=== PATIENT | female | born 1950 | race Caucasian/White ===

== ENCOUNTER 2016-05-16 11:22 | Inpatient (IN) | payer MEDICAID ==
[2016-05-16 11:40] VITALS: BMI 24.5
--- NOTE | 2016-05-16 11:52 | ED PDOC ---
Arrival/HPI - General Chief Complaint: Abdominal Pain Time Seen by Provider: 05/16/16 11:42 Historian: Patient, [employer] (Mita Reynolds) - History of Present Illness Narrative History of Present Illness (Text): 05/16/16 11:49 A 65 year old female presents to the emergency department complaining of lower abdominal pain for the past 11 days. History obtained through [employer] [place] translated for patient. Patient describes her pain as a pinching sensation and denies any radiation. Patient denies any fever, nausea, vomiting, diarrhea, urinary changes, chest pain,shortness of breath or any other complaints. Denies hx of abdominal surgeries. Time/Duration: Other (11 days) Symptom Course: Unchanged Quality: Other Context: Home Past Medical History - Provider Review Nursing Documentation Reviewed: Yes - Infectious Disease Hx of Infectious Diseases: None - Tetanus Immunization Tetanus Immunization: Unknown - Cardiac Hx Hypotension: Yes - Psychiatric Hx Psychophysiologic Disorder: No Hx Anxiety: No Hx Bipolar Disorder: No Hx Depression: No Hx Emotional Abuse: No Hx Hallucinations: No Hx Panic Disorder: No Hx Post Traumatic Stress Disorder: No Hx Psychosis: No Hx Physical Abuse: No Hx Schizophrenia: No Hx Sexual Abuse: No Hx Substance Use: No - Past Surgical History Past Surgical History: No Previous - Anesthesia Hx Anesthesia: No Hx Anesthesia Reactions: No Hx Malignant Hyperthermia: No - Suicidal Assessment Feels Threatened In Home Enviroment: No Family/Social History - Physician Review Nursing Documentation Reviewed: Yes Family/Social History: No Known Family HX Smoking Status: Never Smoked Hx Alcohol Use: No Hx Substance Use: No Hx Substance Use Treatment: No Allergies/Home Meds Allergies/Adverse Reactions: Allergies aspirin Allergy (Verified 05/16/16 11:40) ANAPHYLAXIS Penicillins Allergy (Verified 05/16/16 11:40) ANAPHYLAXIS Home Medications: Home Meds Medication Instructions Recorded Confirmed Lisinopril 20 mg PO DAILY 08/20/14 05/16/16 Metoprolol Succinate [Metoprolol 25 mg PO DAILY 05/16/16 05/16/16 Succinate] Review of Systems - Physician Review All systems were reviewed & negative as marked: Yes - Review of Systems Constitutional: absent: Fevers Respiratory: absent: SOB Cardiovascular: absent: Chest Pain, Palpitations, Edema, Calf Pain Gastrointestinal: Abdominal Pain (suprapubic pain). absent: Diarrhea, Nausea, Vomiting Genitourinary Female: absent: Dysuria, Frequency, Hematuria, Urine Output Changes Musculoskeletal: absent: Arthralgias Skin: absent: Rash, Pruritis Endocrine: absent: Diaphoresis Hemo/Lymphatic: absent: Adenopathy Psychiatric: absent: Anxiety Physical Exam Vital Signs Reviewed: Yes Vital Signs Temp Pulse Resp BP Pulse Ox 05/16/16 11:38 98.3 F 94 H 18 144/78 99 Temperature: Afebrile Blood Pressure: Normal Pulse: Regular Respiratory Rate: Normal Appearance: Positive for: Well-Appearing, Non-Toxic, Comfortable Pain Distress: None Mental Status: Positive for: Alert and Oriented X 3 - Systems Exam Head: Present: Atraumatic, Normocephalic Pupils: Present: PERRL Extroacular Muscles: Present: EOMI Conjunctiva: Present: Normal Mouth: Present: Moist Mucous Membranes Neck: Present: Normal Range of Motion Respiratory/Chest: Present: Clear to Auscultation, Good Air Exchange. No: Respiratory Distress, Accessory Muscle Use Cardiovascular: Present: Regular Rate and Rhythm, Normal S1, S2. No: Murmurs Abdomen: Present: Tenderness (Suprapubic tenderness to palpation), Normal Bowel Sounds. No: Distention, Peritoneal Signs, Rebound, Guarding Back: Present: Normal Inspection Upper Extremity: Present: Normal Inspection. No: Cyanosis, Edema Lower Extremity: Present: Normal Inspection. No: Edema Neurological: Present: GCS=15, CN II-XII Intact, Speech Normal Skin: Present: Warm, Dry, Normal Color. No: Rashes Psychiatric: Present: Alert, Oriented x 3, Normal Insight, Normal Concentration Medical Decision Making ED Course and Treatment: 05/16/16 11:49 Impression: A 65 year old female with suprapubic pain x 11 days. Patient denies any nausea, vomiting or diarrhea. Tender to palpation. Plan: -- Abdomen and pelvis CT -- EKG -- Urinalysis -- Labs -- Reassess and disposition Progress Notes: 05/16/16 12:49 Labs reviewed and WNL. P: ua and CT. Will sign out to Dr. barros to f/u ua and ct and reeval - Lab Interpretations Lab Results: 05/16/16 12:00 05/16/16 12:00 Lab Results 05/16/16 12:00: WBC 10.4 D, RBC 4.06, Hgb 11.2 L, Hct 34.5 L, MCV 85.0, MCH 27.6, MCHC 32.5, RDW 13.1, Plt Count 304, MPV 10.3, Gran % 59.8, Lymph % (Auto) 29.3, [place] % (Auto) 9.0 H, Eos % (Auto) 1.6, Baso % (Auto) 0.3, Gran # 6.23, Lymph # 3.1, [place] # 0.9 H, Eos # 0.2, Baso # 0.03, Sodium 134, Potassium 4.0, Chloride 98, Carbon Dioxide 25, Anion Gap 15, BUN 7, Creatinine 0.8, Est GFR ( Amer) > 60, Est GFR (Non-Af Amer) > 60, Random Glucose 100, Calcium 8.9 , Phosphorus 3.1, Magnesium 2.2, Total Bilirubin 0.7, AST 24, ALT 11, Alkaline Phosphatase 111, Total Protein 8.4 H, Albumin 3.9, Globulin 4.5, Albumin/ Globulin Ratio 0.9 L, Lipase 49 I have reviewed the lab results: Yes - RAD Interpretation Radiology Orders: 05/16/16 11:48 ABD & PELVIS IV CONTRAST ONLY [CT] Stat ED OBSERVATION Date of observation admission: 05/16/16 Time of observation admission: 11:51 - Observation admission statement Patient is being placed in observation because:: Abdominal pain - Goals of Observation Goals of observation are:: Monitor and treat symptoms - Scribe Statement The provider has reviewed the documentation as recorded by the Mita Kamara Provider Scribe Attestation: All medical record entries made by the Sheilaibcampos were at my direction and personally dictated by me. I have reviewed the chart and agree that the record accurately reflects my personal performance of the history, physical exam, medical decision making, and the department course for this patient. I have also personally directed, reviewed, and agree with the discharge instructions and disposition. Disposition/Present on Arrival - Present on Arrival Any Indicators Present on Arrival: No History of DVT/PE: No History of Uncontrolled Diabetes: No Urinary Catheter: No History of Decub. Ulcer: No History Surgical Site Infection Following: None - Disposition Have Diagnosis and Disposition been Completed?: Yes Diagnosis: Suprapubic pain Disposition Time: 12:50 Patient Plan: Observation Patient Problems: Current Active Problems Problem Status Diagnosed Suprapubic pain Acute Condition: FAIR Referrals: Lyn Yarbrough DO [Primary Care Provider] - Follow up with primary
[2016-05-16 12:04] LABS: ADD MANUAL DIFF? NO
[2016-05-16 12:07] LABS: BASO # 0.03 [, K/mm3] (0.0-2.0); BASO % 0.3 % (0.0-3.0); EOS # 0.2 (0.0-0.7); EOS % 1.6 % (1.5-5.0); GRAN # 6.23 (1.4-6.5); GRAN % 59.8 % (50.0-68.0); HEMATOCRIT 34.5 % (36.0-48.0); LYMPH # 3.1 (1.2-3.4); LYMPH % 29.3 % (22.0-35.0); MEAN CORPUSCULAR HEMOGLOBIN 27.6 pg (25.0-35.0); MEAN CORPUSCULAR HGB CONC 32.5 g/dl (31.0-37.0); MEAN PLATELET VOLUME 10.3 fl (7.0-11.0); MONO # 0.9 (0.1-0.6); PLATELET COUNT 304 [, 10^3/uL] (120.0-450.0); RED CELL DISTRIBUTION WIDTH 13.1 % (11.5-14.5); WHITE BLOOD COUNT 10.4 [, 10^3/ul] (4.5-11.0)
[2016-05-16 12:20] LABS: ALB/GLOB RATIO 0.9 (1.1-1.8); ALKALINE PHOSPHATASE 111 U/L (38-133); ALT/SGPT 11 U/L (7-56); AST/SGOT 24 U/L (15-39); BILIRUBIN,TOTAL 0.7 mg/dL (0.2-1.3); BLOOD UREA NITROGEN 7 mg/dL (7-21); CALCIUM 8.9 mg/dL (8.4-10.5); CARBON DIOXIDE 25 mmol/L (21-33); CHLORIDE 98 mmol/L (98-107); GFR AFRICAN-AMERICAN > 60; GLUCOSE,RANDOM 100 mg/dL (70-110); LIPASE 49 U/L (23-300); MAGNESIUM 2.2 mg/dL (1.7-2.2); PHOSPHOROUS 3.1 mg/dL (2.5-4.5); SODIUM 134 mmol/L (132-148); TOTAL PROTEIN 8.4 g/dL (5.8-8.3)
[2016-05-16] MEDS ORDERED: Iohexol 350 MG/100 ML VIAL ONE (13:06)
--- NOTE | 2016-05-16 14:16 | CT ---
PROCEDURE: CT Abdomen and Pelvis with contrast HISTORY: abdominal pain COMPARISON: There is no prior CT of the abdomen and pelvis available for comparison. TECHNIQUE: Contrast dose: 100 mL of Omnipaque 350 Radiation dose: Total exam DLP = 236.21 mGy-cm. FINDINGS: LOWER THORAX: Unremarkable. LIVER: Unremarkable. No gross lesion or ductal dilatation. GALLBLADDER AND BILE DUCTS: Unremarkable. PANCREAS: Unremarkable. No gross lesion or ductal dilatation. SPLEEN: Unremarkable. ADRENALS: Unremarkable. No mass. KIDNEYS AND URETERS: Mild fullness in the collecting system of both kidneys noted. VASCULATURE: Unremarkable. No aortic aneurysm. BOWEL: There are inflammatory changes surrounding the sigmoid colon which demonstrate diffuse wall thickening. There is adjacent 4.2 x 2.8 centimeter enhancing wall collection suggestive of abscess formation. Colonic diverticulosis are seen. Findings suggestive of diverticulitis and intramural or adjacent sigmoid colon abscess formation. No evidence of small bowel obstruction. Suboptimal assessment of the GI is without oral contrast administration. APPENDIX: No evidence of appendicitis. PERITONEUM: Unremarkable. No free fluid. No free air. LYMPH NODES: Mildly enlarged lymph nodes at the mid and lower abdomen. BLADDER: The bladder is mildly distended demonstrate moderate diffuse wall thickening. REPRODUCTIVE: The uterus is mildly enlarged for the patient's age may contain enhancing soft tissue lesion. BONES: No acute fracture. OTHER FINDINGS: None. IMPRESSION: Findings suggestive of sigmoid diverticulitis and abscess formation at the sigmoid wall or adjacent to the sigmoid measures 4.2 x 2.8 centimeter. Diffuse wall thickening of the sigmoid colon. Further assessment of the large bowel particularly the sigmoid colon after the acute phase of diverticulitis is suggested to exclude underlying neoplasm. Mildly to moderately distended urinary bladder demonstrates [id number] wall thickening. Correlate clinically for cystitis. Mildly enlarged heterogeneous uterus.
[2016-05-16] MEDS ORDERED: Ciprofloxacin 400mg/200ml D5W 200 ML IVPB STA (14:40)
[2016-05-16] MEDS ORDERED: metroNIDAZOLE IV 500 mg/100 ml 100 ML IVPB STA (14:40)
[2016-05-16 14:46] LABS: URINE BILIRUBIN NEGATIVE (NEGATIVE); URINE BLOOD LARGE (NEGATIVE); URINE GLUCOSE (UA) NEGATIVE (NEGATIVE); URINE KETONE NEGATIVE (NEGATIVE); URINE LEUKOCYTE ESTERASE NEGATIVE Leu/uL (NEGATIVE); URINE PROTEIN NEGATIVE mg/dL (<30 mg/dL); URINE UROBILINOGEN 0.2 E.U./dL (<1 E.U./dL)
[2016-05-16 14:53] LABS: URINE APPEARANCE CLEAR (CLEAR); URINE COLOR YELLOW (YELLOW)
[2016-05-16 15:11] LABS: URINE WBC NEGATIVE /hpf (0-6)
--- NOTE | 2016-05-16 15:14 | ED PDOC ---
Physical Exam Vital Signs Temp Pulse Resp BP Pulse Ox 05/16/16 11:38 98.3 F 94 H 18 144/78 99 Medical Decision Making ED Course and Treatment: 05/16/16 15:12 Patient signed out to me to follow CT, reevaluate and disposition. Patient states her pain is left lower and mid lower abdomen. One exam she appears comfortable. Abdomen soft and tender to mid lower and LLQ abdomen with guarding. Labs reviewed. WBC normal. CT reviewed with sigmoid diverticulitis with abscess formation. Discussed case with Dr. Frederick who will admit to Med/surg for IV antibiotics. - RAD Interpretation Radiology Orders: 05/16/16 11:48 ABD & PELVIS IV CONTRAST ONLY [CT] Stat - Medication Orders Current Medication Orders: Ciprofloxacin (Cipro 400mg/200ml Dsw) 200 mls @ 133.3 mls/hr IVPB STAT STA PRN Reason: Protocol Stop: 05/16/16 16:10 Metronidazole (Flagyl) 100 mls @ 100 mls/hr IVPB STAT STA PRN Reason: Protocol Stop: 05/16/16 15:39 Discontinued Medications Iohexol (Omnipaque 350 100 Ml) Confirm Administered Dose 350 mg .ROUTE .STK-MED ONE Stop: 05/16/16 13:07 Disposition/Present on Arrival - Present on Arrival Any Indicators Present on Arrival: No History of DVT/PE: No History of Uncontrolled Diabetes: No Urinary Catheter: No History of Decub. Ulcer: No History Surgical Site Infection Following: None - Disposition Have Diagnosis and Disposition been Completed?: Yes Diagnosis: Diverticulitis large intestine w/o perforation or abscess w/o bleeding Disposition: HOSPITALIZED Disposition Time: 11:51 Patient Plan: Admission Patient Problems: Current Active Problems Problem Status Diagnosed Suprapubic pain Acute Condition: FAIR
[2016-05-16] MEDS ORDERED: metroNIDAZOLE IV 500 mg/100 ml 100 ML IVPB SCH (16:00)
[2016-05-16] MEDS: Sodium Chloride 0.9% 1,000 ML IV SCH (16:00)
[2016-05-16] MEDS: Metoprolol Succinate 25 mg XL Tab PO SCH (16:16)
--- NOTE | 2016-05-16 16:18 | CP.PCM.HP ---
<Gregory Palomares - Last Filed: 05/16/16 16:29> History of Present Illness - History of Present Illness History of Present Illness: CC: "Lower stomach pain, fever" HPI: Pt is a 65 year old female with a PMHx of HTN who presents to the ED with an 11 day history of lower abdominal pain. Pt also reports that she experienced a fever today. Pt is accompanied by her granddaughter at bedside. She reports that she came to the ED today because her pain was getting worse. Pt describes the pain as sharp and diffuse across her lower abdomen. Pt also reports that when she urinates, it feels 'hot'. Pt reports that she walked to the ED today. Pt reports that she has had regular bowel movement. She reports that she only had tea today. Pt denies chills, headache, dizziness, shortness of breath, chest pain, nausea, vomiting, diarrhea, hematochezia, constipation, melena. PMHx: HTN Home medications: Lisinopril 20 mg po qd, Metoprolol 25 mg po qd Allergies: Aspirin, penicillin (rash) Past Surgical Hx: Tubal Ligation Social Hx: denies any hx of smoking, alcohol, drug use Family Hx: HTN, Diabetes (mother) Present on Admission - Present on Admission Any Indicators Present on Admission: No Review of Systems - Constitutional Constitutional: Fever. absent: Chills, Headache - EENT Eyes: absent: Blurred Vision, Change in Vision Ears: absent: Dizziness Nose/Mouth/Throat: absent: Nasal Congestion - Cardiovascular Cardiovascular: absent: Chest Pain, Dyspnea - Respiratory Respiratory: absent: Cough, Dyspnea - Gastrointestinal Gastrointestinal: Abdominal Pain. absent: Constipation, Melena, Nausea - Genitourinary Genitourinary: Dysuria - Musculoskeletal Musculoskeletal: absent: Back Pain - Neurological Neurological: absent: Abnormal Gait, Abnormal Hearing - Psychiatric Psychiatric: absent: Anxiety - Hematologic/Lymphatic Hematologic: absent: Easy Bleeding Past Patient History - Infectious Disease Hx of Infectious Diseases: None - Tetanus Immunizations Tetanus Immunization: Unknown - Past Social History Smoking Status: Never Smoked - CARDIAC Hx Hypotension: Yes - PSYCHIATRIC Hx Psychophysiologic Disorder: No Hx Anxiety: No Hx Bipolar Disorder: No Hx Depression: No Hx Emotional Abuse: No Hx Hallucinations: No Hx Panic Symptoms: No Hx Post Traumatic Stress Disorder: No Hx Psychosis: No Hx Physical Abuse: No Hx Schizophrenia: No Hx Sexual Abuse: No Hx Substance Use: No - SURGICAL HISTORY Hx Surgeries: No - ANESTHESIA Hx Anesthesia: No Hx Anesthesia Reactions: No Hx Malignant Hyperthermia: No Meds Allergies/Adverse Reactions: Allergies Allergy/AdvReac Type Severity Reaction Status Date / Time aspirin Allergy ANAPHYLAXIS Verified 05/16/16 11:40 Penicillins Allergy ANAPHYLAXIS Verified 05/16/16 11:40 Physical Exam - Constitutional Appears: No Acute Distress - Head Exam Head Exam: ATRAUMATIC, NORMOCEPHALIC - Eye Exam Eye Exam: EOMI, PERRL - ENT Exam ENT Exam: Mucous Membranes Moist. absent: Mucous Membranes Dry - Neck Exam Neck exam: Positive for: Full Rom. Negative for: Lymphadenopathy - Respiratory Exam Respiratory Exam: Clear to Auscultation Bilateral. absent: Rales, Rhonchi, Wheezes - Cardiovascular Exam Cardiovascular Exam: +S1, +S2. absent: Gallop, Rubs, Systolic Murmur - GI/Abdominal Exam GI & Abdominal Exam: Normal Bowel Sounds, Soft, Tenderness. absent: Distended, Guarding Additional comments: LLQ tenderness - Extremities Exam Extremities exam: Positive for: full ROM. Negative for: pedal edema - Neurological Exam Neurological exam: Alert, Oriented x3 - Psychiatric Exam Psychiatric exam: Normal Affect, Normal Mood Results - Vital Signs Recent Vital Signs: Last Vital Signs Temp 98.3 F 05/16/16 11:38 Pulse 94 H 05/16/16 11:38 Resp 18 05/16/16 11:38 BP 144/78 05/16/16 11:38 Pulse Ox 99 05/16/16 11:38 - Labs Result Diagrams: 05/16/16 12:00 05/16/16 12:00 Labs: Laboratory Results - last 24 hr 05/16/16 05/16/16 12:00 14:30 WBC 10.4 D RBC 4.06 Hgb 11.2 L Hct 34.5 L MCV 85.0 MCH 27.6 MCHC 32.5 RDW 13.1 Plt Count 304 MPV 10.3 Gran % 59.8 Lymph % (Auto) 29.3 [place] % (Auto) 9.0 H Eos % (Auto) 1.6 Baso % (Auto) 0.3 Gran # 6.23 Lymph # 3.1 [place] # 0.9 H Eos # 0.2 Baso # 0.03 Sodium 134 Potassium 4.0 Chloride 98 Carbon Dioxide 25 Anion Gap 15 BUN 7 Creatinine 0.8 Est GFR ( Amer) > 60 Est GFR (Non-Af Amer) > 60 Random Glucose 100 Calcium 8.9 Phosphorus 3.1 Magnesium 2.2 Total Bilirubin 0.7 AST 24 ALT 11 Alkaline Phosphatase 111 Total Protein 8.4 H Albumin 3.9 Globulin 4.5 Albumin/Globulin Ratio 0.9 L Lipase 49 Urine Color Yellow Urine Appearance Clear Urine pH 8.0 Ur Specific [place] 1.010 Urine Protein Negative Urine Glucose (UA) Negative Urine Ketones Negative Urine Blood Large H Urine Nitrate Negative Urine Bilirubin Negative Urine Urobilinogen 0.2 Ur Leukocyte Esterase Negative Urine RBC 10 - 15 Urine WBC Negative Assessment & Plan - Assessment and Plan (Free Text) Assessment: Sigmoid Diverticulitis: Abd/Pelvis CT - sigmoid diverticulitis and abscess formation at the sigmoid wall ; mild to moderate bladder wall thickening, clinically correlate for cystitis; mildly enlarged uterus (please see full report) EKG- NSR Afebrile, nontachycardic No leukocytosis Blood, urine cultures pending Infectious Disease, Dr. Shearer, consulted. Help appreciated. General surgery, Dr. Salvador, consulted. Help appreciated. Ciprofloxacin 400 mg IV q12h Flagyl IV q8h PTT pending CXR- official read pending Tylenol prn for fever Zofran prn for nausea NPO diet Ns 100 cc/hr HTN: Metoprolol 25 mg po qd Start lisinopril tomorrow Prophylactic Measures: DVT: SCDs GI: Protonix 40 mg IV qd <Don Frederick - Last Filed: 05/17/16 16:20> Results - Vital Signs Recent Vital Signs: Last Vital Signs Temp 98.8 F 05/17/16 09:12 Pulse 80 05/17/16 09:51 Resp 20 05/17/16 09:12 BP 131/85 05/17/16 09:51 Pulse Ox 98 05/17/16 09:12 - Labs Result Diagrams: 05/17/16 08:00 05/17/16 07:20 Labs: Laboratory Results - last 24 hr 05/16/16 05/17/16 05/17/16 16:10 07:20 08:00 WBC 10.5 RBC 3.78 Hgb 10.3 L Hct 32.2 L MCV 85.2 MCH 27.2 MCHC 32.0 RDW 13.2 Plt Count 299 MPV 10.5 PT 12.0 H INR 1.11 H APTT 29.8 Sodium 136 Potassium 4.2 Chloride 104 Carbon Dioxide 22 Anion Gap 14 BUN 8 Creatinine 0.7 Est GFR ( Amer) > 60 Est GFR (Non-Af Amer) > 60 Random Glucose 97 Calcium 8.3 L Assessment & Plan - Assessment and Plan (Free Text) Assessment: attending note; Patient seen and examined with resident in ER. Patient's granddaughter by the bedside. Patient is a 65 year old female with a PMHx of HTN who presents to the ED with an 11 day history of lower abdominal pain. Pt also reports that she experienced a fever today. CT consistent with diverticulitis and abscess. surgery evaluation requested. Started on IV Cipro and Flagyl. ID evaluation requested. Hypertension; currently controlled. Continue home meds. Upon discharge patient will follow-up with PMD Dr. Yarbrough. Attending/Attestation - Attestation I have personally seen and examined this patient.: Yes I have fully participated in the care of the patient.: Yes I have reviewed all pertinent clinical information: Yes
--- NOTE | 2016-05-16 16:33 | CP.PCM.CON ---
<Florentin Martinez - Last Filed: 05/16/16 16:36> History of Present Illness - History of Present Illness History of Present Illness: Surgery consult note for Madeleine: 65 F with a PMHx of HTN who presents to the ED with b/l lower abdominal pain. Pt is accompanied by her granddaughter at bedside. Pt states that her pain first started 11 days ago and has since gotten progressively worse. Pt states that the pain is intermittent and worse on the LLQ. She states that her pain is worse with standing and with having bowel movements. She admits to fevers but denies any nausea, vomiting, diarrhea, constipation. She denies taking anything for the pain at home. Denies this ever occurring before. She denies any headaches, dizziness, +fevers, chills, sob, cp, + abd pain, n/v, urinary or bm changes. PMHx: HTN Allergies: Aspirin, penicillin (rash) Surgical Hx: Tubal Ligation Social Hx: denies any hx of smoking, alcohol, drug use Family Hx: HTN, Diabetes (mother) Review of Systems - Review of Systems All systems: reviewed and no additional remarkable complaints except (HPI) Past Patient History - Infectious Disease Hx of Infectious Diseases: None - Tetanus Immunizations Tetanus Immunization: Unknown - Past Social History Smoking Status: Never Smoked Alcohol: None Drugs: Denies - CARDIAC Hx Hypotension: Yes - PSYCHIATRIC Hx Psychophysiologic Disorder: No Hx Anxiety: No Hx Bipolar Disorder: No Hx Depression: No Hx Emotional Abuse: No Hx Hallucinations: No Hx Panic Symptoms: No Hx Post Traumatic Stress Disorder: No Hx Psychosis: No Hx Physical Abuse: No Hx Schizophrenia: No Hx Sexual Abuse: No Hx Substance Use: No - SURGICAL HISTORY Hx Surgeries: No - ANESTHESIA Hx Anesthesia: No Hx Anesthesia Reactions: No Hx Malignant Hyperthermia: No Meds Allergies/Adverse Reactions: Allergies Allergy/AdvReac Type Severity Reaction Status Date / Time aspirin Allergy ANAPHYLAXIS Verified 05/16/16 11:40 Penicillins Allergy ANAPHYLAXIS Verified 05/16/16 11:40 - Medications Medications: Current Medications Acetaminophen (Tylenol 325mg Tab) 650 mg PO Q6H PRN PRN Reason: Fever >100.4 F Ciprofloxacin (Cipro 400mg/200ml Dsw) 200 mls @ 133.3 mls/hr IVPB Q12 [facility] PRN Reason: Protocol Stop: 05/16/16 23:31 Metronidazole (Flagyl) 100 mls @ 100 mls/hr IVPB Q8 [facility] PRN Reason: Protocol Last Admin: 05/16/16 16:17 Dose: Not Given Sodium Chloride (Sodium Chloride 0.9%) 1,000 mls @ 100 mls/hr IV .Q10H [facility] Last Admin: 05/16/16 16:00 Dose: 100 mls/hr Metoprolol Succinate (Toprol Xl) 25 mg PO DAILY [facility] Last Admin: 05/16/16 16:16 Dose: 25 mg Ondansetron HCl (Zofran Inj) 4 mg IVP Q4H PRN PRN Reason: Nausea/Vomiting Pantoprazole Sodium (Protonix Inj) 40 mg IVP DAILY [facility] Last Admin: 05/16/16 16:12 Dose: 40 mg Physical Exam - Constitutional Appears: No Acute Distress - Respiratory Exam Respiratory Exam: Clear to Auscultation Bilateral, NORMAL BREATHING PATTERN - Cardiovascular Exam Cardiovascular Exam: REGULAR RHYTHM, RRR, +S1, +S2 - GI/Abdominal Exam GI & Abdominal Exam: Normal Bowel Sounds, Soft. absent: Distended, Tenderness Additional comments: Tender to palpation LLQ>RLQ - Neurological Exam Neurological exam: Alert, Oriented x3 Results - Vital Signs Recent Vital Signs: Last Vital Signs Temp 98.3 F 05/16/16 11:38 Pulse 94 H 05/16/16 11:38 Resp 18 05/16/16 11:38 BP 144/78 05/16/16 11:38 Pulse Ox 99 05/16/16 11:38 - Labs Result Diagrams: 05/16/16 12:00 05/16/16 12:00 Labs: Laboratory Results - last 24 hr 05/16/16 05/16/16 12:00 14:30 WBC 10.4 D RBC 4.06 Hgb 11.2 L Hct 34.5 L MCV 85.0 MCH 27.6 MCHC 32.5 RDW 13.1 Plt Count 304 MPV 10.3 Gran % 59.8 Lymph % (Auto) 29.3 [place] % (Auto) 9.0 H Eos % (Auto) 1.6 Baso % (Auto) 0.3 Gran # 6.23 Lymph # 3.1 [place] # 0.9 H Eos # 0.2 Baso # 0.03 Sodium 134 Potassium 4.0 Chloride 98 Carbon Dioxide 25 Anion Gap 15 BUN 7 Creatinine 0.8 Est GFR ( Amer) > 60 Est GFR (Non-Af Amer) > 60 Random Glucose 100 Calcium 8.9 Phosphorus 3.1 Magnesium 2.2 Total Bilirubin 0.7 AST 24 ALT 11 Alkaline Phosphatase 111 Total Protein 8.4 H Albumin 3.9 Globulin 4.5 Albumin/Globulin Ratio 0.9 L Lipase 49 Urine Color Yellow Urine Appearance Clear Urine pH 8.0 Ur Specific [place] 1.010 Urine Protein Negative Urine Glucose (UA) Negative Urine Ketones Negative Urine Blood Large H Urine Nitrate Negative Urine Bilirubin Negative Urine Urobilinogen 0.2 Ur Leukocyte Esterase Negative Urine RBC 10 - 15 Urine WBC Negative Assessment & Plan - Assessment and Plan (Free Text) Assessment: 65 F presents with sigmoid diverticulitis with abscess - NPO - IV fluids - Cont Antibiotics as per ID - Recommend IR drainage - Conservative medical management at this time - Serial abd exams Pt discussed with Dr Madeleine Martinez IM Resident PGY-1 <Tra Salvador - Last Filed: 05/17/16 18:08> Meds - Medications Medications: Current Medications Acetaminophen (Tylenol 325mg Tab) 650 mg PO Q6H PRN PRN Reason: Fever >100.4 F Last Admin: 05/16/16 21:13 Dose: 650 mg Acetaminophen (Tylenol 325mg Tab) 650 mg PO Q4H PRN PRN Reason: Pain, Mild (1-3) Sodium Chloride (Sodium Chloride 0.9%) 1,000 mls @ 100 mls/hr IV .Q10H [facility] Last Admin: 05/17/16 12:30 Dose: 100 mls/hr Vancomycin HCl (Vancomycin 1gm) 250 mls @ 167 mls/hr IVPB Q12H [facility] PRN Reason: Protocol Last Admin: 05/17/16 05:02 Dose: 167 mls/hr Metronidazole (Flagyl) 100 mls @ 100 mls/hr IVPB Q8 [facility] PRN Reason: Protocol Last Admin: 05/17/16 13:02 Dose: 100 mls/hr Aztreonam (Azactam 1 Gm) 100 mls @ 100 mls/hr IVPB Q8 [facility] PRN Reason: Protocol Stop: 05/23/16 22:01 Last Admin: 05/17/16 13:02 Dose: 100 mls/hr Lactobacillus Acidophilus (Bacid Acidophilus) 1 cap PO BID [facility] Last Admin: 05/17/16 09:51 Dose: 1 cap Metoprolol Succinate (Toprol Xl) 25 mg PO DAILY [facility] Last Admin: 05/17/16 09:51 Dose: 25 mg Ondansetron HCl (Zofran Inj) 4 mg IVP Q4H PRN PRN Reason: Nausea/Vomiting Oxycodone/Acetaminophen (Percocet 5/325 Mg Tab) 1 tab PO Q6H PRN PRN Reason: Pain, moderate (4-7) Stop: 05/19/16 19:42 Last Admin: 05/17/16 12:28 Dose: 1 tab Pantoprazole Sodium (Protonix Inj) 40 mg IVP DAILY [facility] Last Admin: 05/17/16 09:51 Dose: 40 mg Results - Vital Signs Recent Vital Signs: Last Vital Signs Temp 98.4 F 05/17/16 16:00 Pulse 79 05/17/16 16:00 Resp 18 05/17/16 16:00 BP 146/45 L 05/17/16 16:00 Pulse Ox 99 05/17/16 16:00 - Labs Result Diagrams: 05/17/16 08:00 05/17/16 07:20 Labs: Laboratory Results - last 24 hr 05/17/16 05/17/16 07:20 08:00 WBC 10.5 RBC 3.78 Hgb 10.3 L Hct 32.2 L MCV 85.2 MCH 27.2 MCHC 32.0 RDW 13.2 Plt Count 299 MPV 10.5 Sodium 136 Potassium 4.2 Chloride 104 Carbon Dioxide 22 Anion Gap 14 BUN 8 Creatinine 0.7 Est GFR ( Amer) > 60 Est GFR (Non-Af Amer) > 60 Random Glucose 97 Calcium 8.3 L Attending/Attestation - Attestation I have personally seen and examined this patient.: Yes I have fully participated in the care of the patient.: Yes I have reviewed all pertinent clinical information: Yes Notes (Text): 05/17/16 18:07 Pt was seen and examined at bedside on 05/17/16 Agree with above note and assessment. Pt with Diverticulitis with abscess IR drainage C/w IV antibiotics. Plan d.w pt and Parents in detail Risk and benefit explained in detail.
--- NOTE | 2016-05-16 16:35 | RAD ---
PROCEDURE: Portable chest HISTORY: pre op COMPARISON: None TECHNIQUE: Technique: Single view portable semi erect @ 15:08. FINDINGS: No active pulmonary disease. No pulmonary nodules, masses or infiltrates. No evidence of acute, significant cardiovascular disease. No significant pleural, osseous or subdiaphragmatic abnormalities. IMPRESSION: No active disease
[2016-05-16] MEDS ORDERED: Iohexol 240 (50 ml) ONE (16:56)
[2016-05-16] MEDS ORDERED: Aztreonam 1 Gm in NS 100mL 100 ML IVPB SCH (17:00)
[2016-05-16 17:25] LABS: INR 1.11 (0.93-1.08); PARTIAL THROMBOPLASTIN TIME 29.8 Seconds (23.7-30.8)
--- NOTE | 2016-05-16 17:38 | CARD ---
APPROVED REPORT EKG Measurement Heart [id number] <Conclusion> Normal sinus rhythm Normal ECG
[2016-05-16] MEDS: Vancomycin 1gm in NS 250ml 250 ML IVPB SCH (18:15)
[2016-05-16] MEDS ORDERED: Midazolam 2 MG/2 ML VIAL ONE (18:18)
[2016-05-16] MEDS: metroNIDAZOLE IV 500 mg/100 ml 100 ML IVPB SCH (21:36)
[2016-05-16] MEDS: Aztreonam 1 Gm in NS 100mL 100 ML IVPB SCH (21:37)
[2016-05-16] MEDS ORDERED: Ciprofloxacin 400mg/200ml D5W 200 ML IVPB SCH (22:00)
--- NOTE | 2016-05-16 22:46 | CT ---
PROCEDURE: CT-guided sigmoid abscess drainage. HISTORY: Sigmoid abscess. Needs drainage. PHYSICIAN(S): Yaya Oreilly MD. TECHNIQUE: The relative risks and indications for the procedure were explained to the patient and her family and informed consent obtained. The patient was placed in a supine position on the CT scanner and preliminary images through the lower abdomen performed. This revealed a 4 x 6 cm inflammatory abscess adjacent to the sigmoid colon. A left anterior oblique approach was selected and the area prepped/draped in the usual sterile fashion. Conscious sedation and monitoring were provided throughout the procedure by nurse. An 18-gauge needle was advanced into the collection and 10 cc of purulent fluid aspirated. A specimen was sent to microbiology. A 0.035 J-wire was coiled within the fluid collection. Sequential dilatation was performed with subsequent placement of a 12 [place] pigtail drain. Approximately 35 cc of purulent fluid was aspirated. The cavity was lavaged with normal saline. The drain was sutured to the skin and placed to gravity drainage. Completion images were performed. The patient tolerated the procedure well. IMPRESSION: 1. CT-guided sigmoid abscess drainage as described above.
[2016-05-17] MEDS: Oxycodone/Acetaminophen 5/325 mg Tab PO PRN ×3 (02:54→23:27)
[2016-05-17] MEDS: Vancomycin 1gm in NS 250ml 250 ML IVPB SCH ×2 (05:02→18:11)
[2016-05-17] MEDS: Aztreonam 1 Gm in NS 100mL 100 ML IVPB SCH ×3 (05:02→21:45)
[2016-05-17] MEDS: metroNIDAZOLE IV 500 mg/100 ml 100 ML IVPB SCH ×3 (05:03→23:04)
[2016-05-17 08:04] LABS: BLOOD UREA NITROGEN 8 mg/dL (7-21); CALCIUM 8.3 mg/dL (8.4-10.5); CARBON DIOXIDE 22 mmol/L (21-33); CHLORIDE 104 mmol/L (98-107); GFR AFRICAN-AMERICAN > 60; GLUCOSE,RANDOM 97 mg/dL (70-110); POTASSIUM 4.2 mmol/L (3.6-5.0); SODIUM 136 mmol/L (132-148)
[2016-05-17 08:12] LABS: HEMATOCRIT 32.2 % (36.0-48.0); MEAN CELL VOLUME 85.2 fL (80.0-105.0); MEAN CORPUSCULAR HEMOGLOBIN 27.2 pg (25.0-35.0); MEAN PLATELET VOLUME 10.5 fl (7.0-11.0); RED CELL DISTRIBUTION WIDTH 13.2 % (11.5-14.5); WHITE BLOOD COUNT 10.5 [, 10^3/ul] (4.5-11.0)
--- NOTE | 2016-05-17 08:22 | CP.PCM.PN ---
<Antonia Vo - Last Filed: 05/17/16 15:52> Subjective - Date & Time of Evaluation Date of Evaluation: 05/17/16 Time of Evaluation: 07:30 - Subjective Subjective: Pt seen and evaluated at the bedside. Pt denies N/V. Had low-grade fever 100.4 F last night @ 2100. LLQ abdominal pain is controlled with medication. Last BM was yesterday, prior to IR drainage. Objective - Vital Signs/Intake and Output Vital Signs (last 24 hours): Temp Pulse Resp BP Pulse Ox 100.4 F H 80 18 159/78 H 97 05/16/16 21:13 05/16/16 20:10 05/16/16 21:00 05/16/16 20:10 05/16/16 20:10 Intake and Output: 05/17/16 05/17/16 06:59 18:59 Intake Total 1850 Output Total 400 Balance 1450 - Medications Medications: Current Medications Acetaminophen (Tylenol 325mg Tab) 650 mg PO Q6H PRN PRN Reason: Fever >100.4 F Last Admin: 05/16/16 21:13 Dose: 650 mg Acetaminophen (Tylenol 325mg Tab) 650 mg PO Q4H PRN PRN Reason: Pain, Mild (1-3) Sodium Chloride (Sodium Chloride 0.9%) 1,000 mls @ 100 mls/hr IV .Q10H [facility] Last Admin: 05/16/16 16:00 Dose: 100 mls/hr Vancomycin HCl (Vancomycin 1gm) 250 mls @ 167 mls/hr IVPB Q12H [facility] PRN Reason: Protocol Last Admin: 05/17/16 05:02 Dose: 167 mls/hr Metronidazole (Flagyl) 100 mls @ 100 mls/hr IVPB Q8 [facility] PRN Reason: Protocol Last Admin: 05/17/16 05:03 Dose: 100 mls/hr Aztreonam (Azactam 1 Gm) 100 mls @ 100 mls/hr IVPB Q8 [facility] PRN Reason: Protocol Stop: 05/23/16 22:01 Last Admin: 05/17/16 05:02 Dose: 100 mls/hr Lactobacillus Acidophilus (Bacid Acidophilus) 1 cap PO BID [facility] Metoprolol Succinate (Toprol Xl) 25 mg PO DAILY [facility] Last Admin: 05/16/16 16:16 Dose: 25 mg Ondansetron HCl (Zofran Inj) 4 mg IVP Q4H PRN PRN Reason: Nausea/Vomiting Oxycodone/Acetaminophen (Percocet 5/325 Mg Tab) 1 tab PO Q6H PRN PRN Reason: Pain, moderate (4-7) Stop: 05/19/16 19:42 Last Admin: 05/17/16 02:54 Dose: 1 tab Pantoprazole Sodium (Protonix Inj) 40 mg IVP DAILY [facility] Last Admin: 05/16/16 16:12 Dose: 40 mg - Labs Labs: 05/17/16 07:20 PT 12.0 Seconds (9.9-11.8) H 05/16/16 16:10 INR 1.11 (0.93-1.08) H 05/16/16 16:10 APTT 29.8 Seconds (23.7-30.8) 05/16/16 16:10 - Constitutional Appears: No Acute Distress - Eye Exam Eye Exam: EOMI - Respiratory Exam Respiratory Exam: NORMAL BREATHING PATTERN - Cardiovascular Exam Cardiovascular Exam: RRR - GI/Abdominal Exam GI & Abdominal Exam: Soft, Tenderness Additional comments: LLQ tenderness. APDL catheter to LLQ present - Extremities Exam Extremities Exam: absent: Pedal Edema - Neurological Exam Neurological Exam: Alert, Awake - Skin Skin Exam: Warm Assessment and Plan - Assessment and Plan (Free Text) Plan: 65 F presents with sigmoid diverticulitis with abscess, IR drainage POD #1. Repeat abd CT: 4 x 6 cm abscess, drained of 45cc purulent fluid and lavaged. - NPO, abd tenderness present - IV fluids - Cont Antibiotics as per ID - Conservative medical management at this time - Serial abd exams Further recs as per Dr Madeleine Vo PGY-1 <Tra Salvador B - Last Filed: 05/17/16 18:14> Objective - Vital Signs/Intake and Output Vital Signs (last 24 hours): Temp Pulse Resp BP Pulse Ox 98.4 F 79 18 146/45 L 99 05/17/16 16:00 05/17/16 16:00 05/17/16 16:00 05/17/16 16:00 05/17/16 16:00 Intake and Output: 05/17/16 05/17/16 06:59 18:59 Intake Total 1850 Output Total 400 Balance 1450 - Medications Medications: Current Medications Acetaminophen (Tylenol 325mg Tab) 650 mg PO Q6H PRN PRN Reason: Fever >100.4 F Last Admin: 05/16/16 21:13 Dose: 650 mg Acetaminophen (Tylenol 325mg Tab) 650 mg PO Q4H PRN PRN Reason: Pain, Mild (1-3) Sodium Chloride (Sodium Chloride 0.9%) 1,000 mls @ 100 mls/hr IV .Q10H [facility] Last Admin: 05/17/16 12:30 Dose: 100 mls/hr Vancomycin HCl (Vancomycin 1gm) 250 mls @ 167 mls/hr IVPB Q12H [facility] PRN Reason: Protocol Last Admin: 05/17/16 18:11 Dose: 167 mls/hr Metronidazole (Flagyl) 100 mls @ 100 mls/hr IVPB Q8 [facility] PRN Reason: Protocol Last Admin: 05/17/16 13:02 Dose: 100 mls/hr Aztreonam (Azactam 1 Gm) 100 mls @ 100 mls/hr IVPB Q8 [facility] PRN Reason: Protocol Stop: 05/23/16 22:01 Last Admin: 05/17/16 13:02 Dose: 100 mls/hr Lactobacillus Acidophilus (Bacid Acidophilus) 1 cap PO BID [facility] Last Admin: 05/17/16 18:10 Dose: 1 cap Metoprolol Succinate (Toprol Xl) 25 mg PO DAILY [facility] Last Admin: 05/17/16 09:51 Dose: 25 mg Ondansetron HCl (Zofran Inj) 4 mg IVP Q4H PRN PRN Reason: Nausea/Vomiting Oxycodone/Acetaminophen (Percocet 5/325 Mg Tab) 1 tab PO Q6H PRN PRN Reason: Pain, moderate (4-7) Stop: 05/19/16 19:42 Last Admin: 05/17/16 12:28 Dose: 1 tab Pantoprazole Sodium (Protonix Inj) 40 mg IVP DAILY [facility] Last Admin: 05/17/16 09:51 Dose: 40 mg - Labs Labs: 05/17/16 08:00 05/17/16 07:20 PT 12.0 Seconds (9.9-11.8) H 05/16/16 16:10 INR 1.11 (0.93-1.08) H 05/16/16 16:10 APTT 29.8 Seconds (23.7-30.8) 05/16/16 16:10 Attending/Attestation - Attestation I have personally seen and examined this patient.: Yes I have fully participated in the care of the patient.: Yes I have reviewed all pertinent clinical information, including history, physical exam and plan: Yes Notes (Text): 05/17/16 18:13 Pt was seen and examined at bedside on 05/17/16 Agree with above note and assessment. S/P IR drainage C/w IV antibiotics GI consult Plan d.w pt and Primary team.
[2016-05-17] MEDS: Metoprolol Succinate 25 mg XL Tab PO SCH (09:51)
[2016-05-17] MEDS: Lactobacillus Acidophilus 500 MU Cap PO SCH ×2 (09:51→18:10)
[2016-05-17] MEDS: Sodium Chloride 0.9% 1,000 ML IV SCH (12:30)
--- NOTE | 2016-05-17 14:21 | CP.PCM.PN ---
<Gregory Palomares - Last Filed: 05/17/16 14:18> Subjective - Date & Time of Evaluation Date of Evaluation: 05/17/16 Time of Evaluation: 07:38 - Subjective Subjective: PT seen and examined. Pt complaining of mild to moderate abdominal pain. Pt reports that she is having bowel movements. Pt denies fever, chills, chest pain , shortness of breath, nausea, vomiting, diarrhea. Objective - Vital Signs/Intake and Output Vital Signs (last 24 hours): Temp Pulse Resp BP Pulse Ox 98.8 F 80 20 131/85 98 05/17/16 09:12 05/17/16 09:51 05/17/16 09:12 05/17/16 09:51 05/17/16 09:12 Intake and Output: 05/17/16 05/17/16 06:59 18:59 Intake Total 1850 Output Total 400 Balance 1450 - Medications Medications: Current Medications Acetaminophen (Tylenol 325mg Tab) 650 mg PO Q6H PRN PRN Reason: Fever >100.4 F Last Admin: 05/16/16 21:13 Dose: 650 mg Acetaminophen (Tylenol 325mg Tab) 650 mg PO Q4H PRN PRN Reason: Pain, Mild (1-3) Sodium Chloride (Sodium Chloride 0.9%) 1,000 mls @ 100 mls/hr IV .Q10H [facility] [place] Last Admin: 05/17/16 12:30 Dose: 100 mls/hr Vancomycin HCl (Vancomycin 1gm) 250 mls @ 167 mls/hr IVPB Q12H [facility] PRN Reason: Protocol Last Admin: 05/17/16 05:02 Dose: 167 mls/hr Metronidazole (Flagyl) 100 mls @ 100 mls/hr IVPB Q8 [facility] PRN Reason: Protocol Last Admin: 05/17/16 13:02 Dose: 100 mls/hr Aztreonam (Azactam 1 Gm) 100 mls @ 100 mls/hr IVPB Q8 [facility] PRN Reason: Protocol Stop: 05/23/16 22:01 Last Admin: 05/17/16 13:02 Dose: 100 mls/hr Lactobacillus Acidophilus (Bacid Acidophilus) 1 cap PO BID [facility] [place] Last Admin: 05/17/16 09:51 Dose: 1 cap Metoprolol Succinate (Toprol Xl) 25 mg PO DAILY [facility] [place] Last Admin: 05/17/16 09:51 Dose: 25 mg Ondansetron HCl (Zofran Inj) 4 mg IVP Q4H PRN PRN Reason: Nausea/Vomiting Oxycodone/Acetaminophen (Percocet 5/325 Mg Tab) 1 tab PO Q6H PRN PRN Reason: Pain, moderate (4-7) Stop: 05/19/16 19:42 Last Admin: 05/17/16 12:28 Dose: 1 tab Pantoprazole Sodium (Protonix Inj) 40 mg IVP DAILY [facility] [place] Last Admin: 05/17/16 09:51 Dose: 40 mg - Labs Labs: 05/17/16 08:00 05/17/16 07:20 PT 12.0 Seconds (9.9-11.8) H 05/16/16 16:10 INR 1.11 (0.93-1.08) H 05/16/16 16:10 APTT 29.8 Seconds (23.7-30.8) 05/16/16 16:10 - Constitutional Appears: No Acute Distress - Head Exam Head Exam: ATRAUMATIC, NORMOCEPHALIC - Eye Exam Eye Exam: EOMI, PERRL - ENT Exam ENT Exam: Mucous Membranes Moist. absent: Mucous Membranes Dry - Respiratory Exam Respiratory Exam: Clear to Ausculation Bilateral. absent: Rales, Rhonchi, Wheezes - Cardiovascular Exam Cardiovascular Exam: +S1, +S2. absent: Gallop, Rubs - GI/Abdominal Exam GI & Abdominal Exam: Soft, Tenderness, Normal Bowel Sounds. absent: Distended, Firm Additional comments: mid abdomen tenderness - Extremities Exam Extremities Exam: Full ROM. absent: Pedal Edema - Neurological Exam Neurological Exam: Alert, Awake, Oriented x3 - Psychiatric Exam Psychiatric exam: Normal Affect, Normal Mood - Skin Skin Exam: Normal Color, Warm Assessment and Plan - Assessment and Plan (Free Text) Assessment: Sigmoid Diverticulitis: Pt day 0 s/p CT guided abscess drainage and drain placement as per IR; 45 cc of purulent fluid drained and lavaged; serosanguinous fluid in drain Fluid cultures pending Abd/Pelvis CT - sigmoid diverticulitis and abscess formation at the sigmoid wall ; mild to moderate bladder wall thickening, clinically correlate for cystitis; mildly enlarged uterus (please see full report) EKG- NSR Tmax 100.4, nontachycardic No leukocytosis CXR - no active disease (please see full report) Blood, urine cultures pending Azactam 1 gm IV q8h Vancomycin 1 gm IV q12h Flagyl IV q8h Percocet 5/325 mg po q6h prn for moderate pain Tylenol prn for mild pain Tylenol prn for fever Zofran prn for nausea Continue NPO as per surgery due to pt still having abdominal tenderness Ns 100 cc/hr HTN: BP currently stable Metoprolol 25 mg po qd Lisinopril held Prophylactic Measures: DVT: SCDs GI: Protonix 40 mg IV qd <Rangasamy,Ajantha - Last Filed: 05/17/16 18:27> Objective - Vital Signs/Intake and Output Vital Signs (last 24 hours): Temp Pulse Resp BP Pulse Ox 98.4 F 79 18 146/45 L 99 05/17/16 16:00 05/17/16 16:00 05/17/16 16:00 05/17/16 16:00 05/17/16 16:00 Intake and Output: 05/17/16 05/17/16 06:59 18:59 Intake Total 1850 Output Total 400 Balance 1450 - Medications Medications: Current Medications Acetaminophen (Tylenol 325mg Tab) 650 mg PO Q6H PRN PRN Reason: Fever >100.4 F Last Admin: 05/16/16 21:13 Dose: 650 mg Acetaminophen (Tylenol 325mg Tab) 650 mg PO Q4H PRN PRN Reason: Pain, Mild (1-3) Sodium Chloride (Sodium Chloride 0.9%) 1,000 mls @ 100 mls/hr IV .Q10H [facility] Last Admin: 05/17/16 12:30 Dose: 100 mls/hr Vancomycin HCl (Vancomycin 1gm) 250 mls @ 167 mls/hr IVPB Q12H [facility] PRN Reason: Protocol Last Admin: 05/17/16 18:11 Dose: 167 mls/hr Metronidazole (Flagyl) 100 mls @ 100 mls/hr IVPB Q8 [facility] PRN Reason: Protocol Last Admin: 05/17/16 13:02 Dose: 100 mls/hr Aztreonam (Azactam 1 Gm) 100 mls @ 100 mls/hr IVPB Q8 [facility] PRN Reason: Protocol Stop: 05/23/16 22:01 Last Admin: 05/17/16 13:02 Dose: 100 mls/hr Lactobacillus Acidophilus (Bacid Acidophilus) 1 cap PO BID [facility] Last Admin: 05/17/16 18:10 Dose: 1 cap Metoprolol Succinate (Toprol Xl) 25 mg PO DAILY [facility] [place] Last Admin: 05/17/16 09:51 Dose: 25 mg Ondansetron HCl (Zofran Inj) 4 mg IVP Q4H PRN PRN Reason: Nausea/Vomiting Oxycodone/Acetaminophen (Percocet 5/325 Mg Tab) 1 tab PO Q6H PRN PRN Reason: Pain, moderate (4-7) Stop: 05/19/16 19:42 Last Admin: 05/17/16 12:28 Dose: 1 tab Pantoprazole Sodium (Protonix Inj) 40 mg IVP DAILY [facility] [place] Last Admin: 05/17/16 09:51 Dose: 40 mg - Labs Labs: 05/17/16 08:00 05/17/16 07:20 PT 12.0 Seconds (9.9-11.8) H 05/16/16 16:10 INR 1.11 (0.93-1.08) H 05/16/16 16:10 APTT 29.8 Seconds (23.7-30.8) 05/16/16 16:10 Assessment and Plan - Assessment and Plan (Free Text) Assessment: attending note; Patient seen and examined with resident. Patient is a 65 year old female with a PMHx of HTN who presents to the ED with an 11 day history of lower abdominal pain. Pt also reports that she experienced a fever today. CT consistent with diverticulitis and abscess. surgery evaluation appreciated. Status post pigtail catheter placement by IR Dr. Yaya Oreilly yesterday. Culture results pending. ID evaluation appreciated. continue IV vancomycin, azactam and Flagyl. currently patient is nothing by mouth. Continue IV fluids. we'll start clear liquid in a.m.. Hypertension; currently controlled. Continue home meds. Upon discharge patient will follow-up with PMD Dr. Yarbrough. Attending/Attestation - Attestation I have personally seen and examined this patient.: Yes I have fully participated in the care of the patient.: Yes I have reviewed all pertinent clinical information, including history, physical exam and plan: Yes
--- NOTE | 2016-05-17 16:24 | CP.PCM.CON ---
History of Present Illness - History of Present Illness History of Present Illness: 65 year old female with PMH of HTN was admitted because of lower abdominal pain which is mostly in the left lower quadrant, associated with nausea, which is worsened when she moves her bowels. She denies fever or chills but had low grade fevers during this admission, no vomiting, no chest pain, no SOB, no cough or rhinorrhea, no headache or dizziness, no dysuria, no diarrhea, no sore throat, no headache or dizziness. In the ED, CT A/P showed diverticulitis with abscess and CT-guided drainage has been done. Infectious Diseases consult is requested to further evaluate and manage. Review of Systems - Review of Systems All systems: reviewed and no additional remarkable complaints except (as per HPI ) Past Patient History - Infectious Disease Hx of Infectious Diseases: None - Tetanus Immunizations Tetanus Immunization: Unknown - Past Medical History & Family History Past Medical History?: Yes Pertinent Family History: HTN, DM on the mother's side - Past Social History Smoking Status: Never Smoked Alcohol: None Drugs: Denies Home Situation {Lives}: With Family - CARDIAC Hx Hypertension: Yes - MUSCULOSKELETAL/RHEUMATOLOGICAL Hx Falls: No - PSYCHIATRIC Hx Psychophysiologic Disorder: No Hx Anxiety: No Hx Bipolar Disorder: No Hx Depression: No Hx Emotional Abuse: No Hx Hallucinations: No Hx Panic Symptoms: No Hx Post Traumatic Stress Disorder: No Hx Psychosis: No Hx Physical Abuse: No Hx Schizophrenia: No Hx Sexual Abuse: No - SURGICAL HISTORY Hx Surgeries: Yes Other/Comment: tubal ligation - ANESTHESIA Hx Anesthesia: No Hx Anesthesia Reactions: No Hx Malignant Hyperthermia: No Meds Allergies/Adverse Reactions: Allergies Allergy/AdvReac Type Severity Reaction Status Date / Time aspirin Allergy ANAPHYLAXIS Verified 05/16/16 11:40 Penicillins Allergy ANAPHYLAXIS Verified 05/16/16 11:40 - Medications Medications: Current Medications Acetaminophen (Tylenol 325mg Tab) 650 mg PO Q6H PRN PRN Reason: Fever >100.4 F Last Admin: 05/16/16 21:13 Dose: 650 mg Acetaminophen (Tylenol 325mg Tab) 650 mg PO Q4H PRN PRN Reason: Pain, Mild (1-3) Sodium Chloride (Sodium Chloride 0.9%) 1,000 mls @ 100 mls/hr IV .Q10H [facility] Last Admin: 05/16/16 16:00 Dose: 100 mls/hr Vancomycin HCl (Vancomycin 1gm) 250 mls @ 167 mls/hr IVPB Q12H [facility] PRN Reason: Protocol Last Admin: 05/17/16 05:02 Dose: 167 mls/hr Metronidazole (Flagyl) 100 mls @ 100 mls/hr IVPB Q8 [facility] PRN Reason: Protocol Last Admin: 05/17/16 05:03 Dose: 100 mls/hr Aztreonam (Azactam 1 Gm) 100 mls @ 100 mls/hr IVPB Q8 [facility] PRN Reason: Protocol Stop: 05/23/16 22:01 Last Admin: 05/17/16 05:02 Dose: 100 mls/hr Lactobacillus Acidophilus (Bacid Acidophilus) 1 cap PO BID [facility] Metoprolol Succinate (Toprol Xl) 25 mg PO DAILY [facility] Last Admin: 05/16/16 16:16 Dose: 25 mg Ondansetron HCl (Zofran Inj) 4 mg IVP Q4H PRN PRN Reason: Nausea/Vomiting Oxycodone/Acetaminophen (Percocet 5/325 Mg Tab) 1 tab PO Q6H PRN PRN Reason: Pain, moderate (4-7) Stop: 05/19/16 19:42 Last Admin: 05/17/16 02:54 Dose: 1 tab Pantoprazole Sodium (Protonix Inj) 40 mg IVP DAILY [facility] Last Admin: 05/16/16 16:12 Dose: 40 mg Physical Exam - Constitutional Appears: Non-toxic, No Acute Distress - Head Exam Head Exam: NORMAL INSPECTION - ENT Exam ENT Exam: Mucous Membranes Moist - Neck Exam Neck exam: Negative for: Lymphadenopathy, Meningismus - Respiratory Exam Respiratory Exam: Decreased Breath Sounds. absent: Rales - Cardiovascular Exam Cardiovascular Exam: +S1, +S2 - GI/Abdominal Exam GI & Abdominal Exam: Soft, Tenderness (mild, left lower quadrant, with abdominal drain in place with serosanguinous fluid). absent: Distended, Firm, Guarding, Rebound, Rigid Results - Vital Signs Recent Vital Signs: Last Vital Signs Temp 100.4 F H 05/16/16 21:13 Pulse 80 05/16/16 20:10 Resp 18 05/16/16 21:00 BP 159/78 H 05/16/16 20:10 Pulse Ox 97 05/16/16 20:10 - Labs Result Diagrams: 05/17/16 08:00 03/22/17 07:20 Labs: Laboratory Results - last 24 hr 05/16/16 16:10 PT 12.0 H INR 1.11 H APTT 29.8 Assessment & Plan - Assessment and Plan (Free Text) Plan: Assessment Sepsis secondary to sigmoid diverticulitis with diverticular abscess S/P CT- guided drainage POD #1 HTN Plan Started patient on Vancomycin, Azactam and Flagyl pending final blood and abscess culture results Will monitor clinically
[2016-05-18] MEDS: Vancomycin 1gm in NS 250ml 250 ML IVPB SCH ×2 (05:10→17:46)
[2016-05-18] MEDS: Aztreonam 1 Gm in NS 100mL 100 ML IVPB SCH ×3 (07:02→23:15)
[2016-05-18 07:19] LABS: ADD MANUAL DIFF? NO
[2016-05-18 07:26] LABS: BASO # 0.01 [, K/mm3] (0.0-2.0); BASO % 0.1 % (0.0-3.0); EOS # 0.2 (0.0-0.7); EOS % 2.7 % (1.5-5.0); GRAN # 5.57 (1.4-6.5); GRAN % 72.3 % (50.0-68.0); HEMATOCRIT 31.7 % (36.0-48.0); LYMPH # 1.3 (1.2-3.4); LYMPH % 16.9 % (22.0-35.0); MEAN CELL VOLUME 83.6 fL (80.0-105.0); MEAN CORPUSCULAR HEMOGLOBIN 26.9 pg (25.0-35.0); MEAN CORPUSCULAR HGB CONC 32.2 g/dl (31.0-37.0); MONO # 0.6 (0.1-0.6); PLATELET COUNT 297 [, 10^3/uL] (120.0-450.0); RED CELL DISTRIBUTION WIDTH 13.1 % (11.5-14.5); WHITE BLOOD COUNT 7.7 [, 10^3/ul] (4.5-11.0)
--- NOTE | 2016-05-18 07:43 | CP.PCM.PN ---
<Antonia Vo - Last Filed: 05/18/16 16:34> Subjective - Date & Time of Evaluation Date of Evaluation: 05/18/16 Time of Evaluation: 06:20 - Subjective Subjective: Pt seen and evaluated at the bedside. Pt denies F/N/V/D and is hungry. Abd pain is decreased, but still present. Objective - Vital Signs/Intake and Output Vital Signs (last 24 hours): Temp Pulse Resp BP Pulse Ox 98.4 F 79 18 146/45 L 99 05/17/16 16:00 05/17/16 16:00 05/17/16 16:00 05/17/16 16:00 05/17/16 16:00 Intake and Output: 05/18/16 05/18/16 06:59 18:59 Intake Total 0 Balance 0 - Medications Medications: Current Medications Acetaminophen (Tylenol 325mg Tab) 650 mg PO Q6H PRN PRN Reason: Fever >100.4 F Last Admin: 05/16/16 21:13 Dose: 650 mg Acetaminophen (Tylenol 325mg Tab) 650 mg PO Q4H PRN PRN Reason: Pain, Mild (1-3) Sodium Chloride (Sodium Chloride 0.9%) 1,000 mls @ 100 mls/hr IV .Q10H [facility] Last Admin: 05/17/16 12:30 Dose: 100 mls/hr Vancomycin HCl (Vancomycin 1gm) 250 mls @ 167 mls/hr IVPB Q12H [facility] PRN Reason: Protocol Last Admin: 05/18/16 05:10 Dose: 167 mls/hr Metronidazole (Flagyl) 100 mls @ 100 mls/hr IVPB Q8 [facility] PRN Reason: Protocol Last Admin: 05/17/16 23:04 Dose: 100 mls/hr Aztreonam (Azactam 1 Gm) 100 mls @ 100 mls/hr IVPB Q8 [facility] PRN Reason: Protocol Stop: 05/23/16 22:01 Last Admin: 05/18/16 07:02 Dose: 100 mls/hr Lactobacillus Acidophilus (Bacid Acidophilus) 1 cap PO BID [facility] Last Admin: 05/17/16 18:10 Dose: 1 cap Metoprolol Succinate (Toprol Xl) 25 mg PO DAILY [facility] Last Admin: 05/17/16 09:51 Dose: 25 mg Ondansetron HCl (Zofran Inj) 4 mg IVP Q4H PRN PRN Reason: Nausea/Vomiting Oxycodone/Acetaminophen (Percocet 5/325 Mg Tab) 1 tab PO Q6H PRN PRN Reason: Pain, moderate (4-7) Stop: 05/19/16 19:42 Last Admin: 05/17/16 23:27 Dose: 1 tab Pantoprazole Sodium (Protonix Inj) 40 mg IVP DAILY [facility] Last Admin: 05/17/16 09:51 Dose: 40 mg - Labs Labs: 05/18/16 06:45 05/17/16 07:20 PT 12.0 Seconds (9.9-11.8) H 05/16/16 16:10 INR 1.11 (0.93-1.08) H 05/16/16 16:10 APTT 29.8 Seconds (23.7-30.8) 05/16/16 16:10 - Additional Findings Additional findings: - Constitutional Appears: No Acute Distress - Eye Exam Eye Exam: EOMI - Respiratory Exam Respiratory Exam: NORMAL BREATHING PATTERN - Cardiovascular Exam Cardiovascular Exam: RRR - GI/Abdominal Exam GI & Abdominal Exam: Soft, tenderness to LLQ Additional comments: APDL catheter to LLQ present - Extremities Exam Extremities Exam: absent: Pedal Edema - Neurological Exam Neurological Exam: Alert, Awake - Skin Skin Exam: Warm Assessment and Plan - Assessment and Plan (Free Text) Plan: 65 F presents with sigmoid diverticulitis with abscess, IR drainage POD #2. Repeat abd CT: 4 x 6 cm abscess, drained of 45cc purulent fluid and lavaged. - ADAT - IV fluids - Cont Antibiotics as per ID - Conservative medical management at this time - Serial abd exams Further recs as per Dr Madeleine Vo PGY-1 <Tra Salvador B - Last Filed: 05/19/16 15:30> Objective - Vital Signs/Intake and Output Vital Signs (last 24 hours): Temp Pulse Resp BP Pulse Ox 99.2 F 78 20 173/104 H 99 05/19/16 09:22 05/19/16 09:22 05/19/16 09:22 05/19/16 09:22 05/19/16 09:22 Intake and Output: 05/19/16 05/19/16 06:59 18:59 Intake Total 600 Output Total 2 Balance 598 - Medications Medications: Current Medications Acetaminophen (Tylenol 325mg Tab) 650 mg PO Q6H PRN PRN Reason: Fever >100.4 F Last Admin: 05/16/16 21:13 Dose: 650 mg Acetaminophen (Tylenol 325mg Tab) 650 mg PO Q4H PRN PRN Reason: Pain, Mild (1-3) Heparin Sodium (Porcine) (Heparin) 5,000 units SC Q12 [facility] PRN Reason: Protocol Sodium Chloride (Sodium Chloride 0.9%) 1,000 mls @ 100 mls/hr IV .Q10H [facility] Last Admin: 05/19/16 12:55 Dose: 100 mls/hr Metronidazole (Flagyl) 100 mls @ 100 mls/hr IVPB Q8 [facility] PRN Reason: Protocol Last Admin: 05/19/16 13:00 Dose: 100 mls/hr Aztreonam (Azactam 1 Gm) 100 mls @ 100 mls/hr IVPB Q8 [facility] PRN Reason: Protocol Stop: 05/23/16 22:01 Last Admin: 05/19/16 13:00 Dose: 100 mls/hr Lactobacillus Acidophilus (Bacid Acidophilus) 1 cap PO BID [facility] Last Admin: 05/19/16 09:14 Dose: 1 cap Lisinopril (Zestril) 20 mg PO DAILY [facility] Last Admin: 05/19/16 09:09 Dose: Not Given Metoprolol Succinate (Toprol Xl) 25 mg PO DAILY [facility] Last Admin: 05/19/16 09:14 Dose: 25 mg Ondansetron HCl (Zofran Inj) 4 mg IVP Q4H PRN PRN Reason: Nausea/Vomiting Oxycodone/Acetaminophen (Percocet 5/325 Mg Tab) 1 tab PO Q6H PRN PRN Reason: Pain, moderate (4-7) Stop: 05/19/16 19:42 Last Admin: 05/17/16 23:27 Dose: 1 tab Pantoprazole Sodium (Protonix Inj) 40 mg IVP DAILY [facility] Last Admin: 05/19/16 09:14 Dose: 40 mg - Labs Labs: 05/19/16 07:30 05/19/16 07:30 PT 12.0 Seconds (9.9-11.8) H 05/16/16 16:10 INR 1.11 (0.93-1.08) H 05/16/16 16:10 APTT 29.8 Seconds (23.7-30.8) 05/16/16 16:10 Attending/Attestation - Attestation I have personally seen and examined this patient.: Yes I have fully participated in the care of the patient.: Yes I have reviewed all pertinent clinical information, including history, physical exam and plan: Yes Notes (Text): 05/19/16 15:29 Pt was seen and examined at bedside on 05/18/16 Agree with above note and assessment Pt is improving clinically C/w current mx
[2016-05-18] MEDS: metroNIDAZOLE IV 500 mg/100 ml 100 ML IVPB SCH ×3 (08:02→21:23)
[2016-05-18 08:12] LABS: ALB/GLOB RATIO 0.8 (1.1-1.8); ALKALINE PHOSPHATASE 94 U/L (38-133); ALT/SGPT 13 U/L (7-56); AST/SGOT 23 U/L (15-39); BILIRUBIN,TOTAL 0.5 mg/dL (0.2-1.3); BLOOD UREA NITROGEN 7 mg/dL (7-21); CALCIUM 8.1 mg/dL (8.4-10.5); CARBON DIOXIDE 18 mmol/L (21-33); CHLORIDE 105 mmol/L (98-107); GFR AFRICAN-AMERICAN > 60; GLUCOSE,RANDOM 74 mg/dL (70-110); MAGNESIUM 1.9 mg/dL (1.7-2.2); PHOSPHOROUS 2.7 mg/dL (2.5-4.5); POTASSIUM 3.7 mmol/L (3.6-5.0); SODIUM 135 mmol/L (132-148); TOTAL PROTEIN 7.2 g/dL (5.8-8.3)
[2016-05-18 08:54] VITALS: RESP 20
[2016-05-18] MEDS: Metoprolol Succinate 25 mg XL Tab PO SCH (09:00)
[2016-05-18] MEDS: Lactobacillus Acidophilus 500 MU Cap PO SCH ×2 (09:01→17:47)
--- NOTE | 2016-05-18 13:20 | CP.PCM.CON ---
<Dylan Terry - Last Filed: 05/18/16 14:20> History of Present Illness - History of Present Illness History of Present Illness: PGY4 GI Fellow Consult Note Patient is a 65yo female with PMHx significant for HTN who presented to the ED with abdominal pain. For 11 days prior to admission she complained of cramping LLQ abdominal pain. At first pain was aching and slight but progressed to severe stabbing pain prompting evaluation in the ED. Symptoms were exacerbated by walking, eating and trying to pass stool. On initial work up, CT of the A/P revealed acute diverticulitis with abscess formation adjacent to the sigmoid colon. She has since undergone IR placement of a drain for her abscess. At this time, she continues to complain of LQL abdominal pain and low grade fever with occasional chills. Admits that she had colonoscopy 7 years ago without any significant findings. She denies any weight loss, nausea, vomiting, hematochezia or melena. PMHx: See HPI PSHx: Denies FHx: Mother - [place], DM Social: Denies tobacco, EtOH or illicit drug use Endo: Colonoscopy 7 years ago - no significant findings per patient Review of Systems - Constitutional Constitutional: Anorexia, Chills, Fatigue, Fever, Malaise - EENT Eyes: absent: Change in Vision Nose/Mouth/Throat: absent: Sore Throat - Cardiovascular Cardiovascular: absent: Chest Pain, Diaphoresis, Dyspnea - Respiratory Respiratory: absent: Cough, Dyspnea, Excessive Mucous Production - Gastrointestinal Gastrointestinal: Abdominal Pain, Cramping, Diarrhea, Dysphagia. absent: Bloating, Constipation, Dyspepsia, Nausea, Vomiting - Genitourinary Genitourinary: absent: Dysuria, Urinary Frequency, Urinary Urgency - Musculoskeletal Musculoskeletal: absent: Back Pain, Neck Pain - Integumentary Integumentary: absent: New Lesions, Rash - Neurological Neurological: absent: Dizziness, Numbness, Focal Weakness - Psychiatric Psychiatric: absent: Anxiety, Depression - Endocrine Endocrine: absent: Polydipsia, Polyphagia, Polyuria - Hematologic/Lymphatic Hematologic: absent: Easy Bleeding, Easy Bruising, Lymphadenopathy Past Patient History - Infectious Disease Hx of Infectious Diseases: None - Tetanus Immunizations Tetanus Immunization: Unknown - Past Medical History & Family History Past Medical History?: Yes - Past Social History Smoking Status: Never Smoked Alcohol: None Drugs: Denies Home Situation {Lives}: With Family - CARDIAC Hx Hypertension: Yes - MUSCULOSKELETAL/RHEUMATOLOGICAL Hx Falls: No - PSYCHIATRIC Hx Psychophysiologic Disorder: No Hx Anxiety: No Hx Bipolar Disorder: No Hx Depression: No Hx Emotional Abuse: No Hx Hallucinations: No Hx Panic Symptoms: No Hx Post Traumatic Stress Disorder: No Hx Psychosis: No Hx Physical Abuse: No Hx Schizophrenia: No Hx Sexual Abuse: No - SURGICAL HISTORY Hx Surgeries: Yes Other/Comment: tubal ligation - ANESTHESIA Hx Anesthesia: No Hx Anesthesia Reactions: No Hx Malignant Hyperthermia: No Meds Allergies/Adverse Reactions: Allergies Allergy/AdvReac Type Severity Reaction Status Date / Time aspirin Allergy ANAPHYLAXIS Verified 05/16/16 11:40 Penicillins Allergy ANAPHYLAXIS Verified 05/16/16 11:40 - Medications Medications: Current Medications Acetaminophen (Tylenol 325mg Tab) 650 mg PO Q6H PRN PRN Reason: Fever >100.4 F Last Admin: 05/16/16 21:13 Dose: 650 mg Acetaminophen (Tylenol 325mg Tab) 650 mg PO Q4H PRN PRN Reason: Pain, Mild (1-3) Sodium Chloride (Sodium Chloride 0.9%) 1,000 mls @ 100 mls/hr IV .Q10H [facility] Last Admin: 05/17/16 12:30 Dose: 100 mls/hr Vancomycin HCl (Vancomycin 1gm) 250 mls @ 167 mls/hr IVPB Q12H [facility] PRN Reason: Protocol Last Admin: 05/18/16 05:10 Dose: 167 mls/hr Metronidazole (Flagyl) 100 mls @ 100 mls/hr IVPB Q8 [facility] PRN Reason: Protocol Last Admin: 05/18/16 08:02 Dose: 100 mls/hr Aztreonam (Azactam 1 Gm) 100 mls @ 100 mls/hr IVPB Q8 [facility] PRN Reason: Protocol Stop: 05/23/16 22:01 Last Admin: 05/18/16 07:02 Dose: 100 mls/hr Lactobacillus Acidophilus (Bacid Acidophilus) 1 cap PO BID [facility] Last Admin: 05/18/16 09:01 Dose: 1 cap Lisinopril (Zestril) 20 mg PO DAILY [facility] Metoprolol Succinate (Toprol Xl) 25 mg PO DAILY [facility] Last Admin: 05/18/16 09:00 Dose: 25 mg Ondansetron HCl (Zofran Inj) 4 mg IVP Q4H PRN PRN Reason: Nausea/Vomiting Oxycodone/Acetaminophen (Percocet 5/325 Mg Tab) 1 tab PO Q6H PRN PRN Reason: Pain, moderate (4-7) Stop: 05/19/16 19:42 Last Admin: 05/17/16 23:27 Dose: 1 tab Pantoprazole Sodium (Protonix Inj) 40 mg IVP DAILY [facility] Last Admin: 05/18/16 09:00 Dose: 40 mg Physical Exam - Constitutional Appears: Non-toxic, No Acute Distress - Eye Exam Eye Exam: EOMI, PERRL - ENT Exam ENT Exam: Mucous Membranes Moist - Respiratory Exam Respiratory Exam: Clear to Auscultation Bilateral. absent: Rales, Rhonchi, Wheezes - Cardiovascular Exam Cardiovascular Exam: RRR, +S1, +S2 - GI/Abdominal Exam GI & Abdominal Exam: Normal Bowel Sounds, Soft, Tenderness (LLQ). absent: Distended, Firm, Guarding, Rigid Additional comments: drain in LLQ - Extremities Exam Extremities exam: Positive for: normal inspection. Negative for: pedal edema - Neurological Exam Neurological exam: Alert, Oriented x3 - Psychiatric Exam Psychiatric exam: Normal Affect, Normal Mood - Skin Skin Exam: Dry, Warm Results - Vital Signs Recent Vital Signs: Last Vital Signs Temp 98.5 F 05/18/16 08:00 Pulse 77 05/18/16 09:00 Resp 20 05/18/16 08:00 BP 152/60 H 05/18/16 09:00 Pulse Ox 99 05/18/16 08:00 - Labs Result Diagrams: 05/18/16 06:45 05/18/16 06:45 Labs: Laboratory Results - last 24 hr 05/18/16 06:45 WBC 7.7 D RBC 3.79 Hgb 10.2 L Hct 31.7 L MCV 83.6 MCH 26.9 MCHC 32.2 RDW 13.1 Plt Count 297 MPV 10.0 Gran % 72.3 H Lymph % (Auto) 16.9 L [place] % (Auto) 8.0 H Eos % (Auto) 2.7 Baso % (Auto) 0.1 Gran # 5.57 Lymph # 1.3 [place] # 0.6 Eos # 0.2 Baso # 0.01 Sodium 135 Potassium 3.7 Chloride 105 Carbon Dioxide 18 L Anion Gap 16 BUN 7 Creatinine 0.6 Est GFR ( Amer) > 60 Est GFR (Non-Af Amer) > 60 Random Glucose 74 Calcium 8.1 L Phosphorus 2.7 Magnesium 1.9 Total Bilirubin 0.5 AST 23 ALT 13 Alkaline Phosphatase 94 Total Protein 7.2 Albumin 3.1 Globulin 4.1 Albumin/Globulin Ratio 0.8 L Assessment & Plan - Assessment and Plan (Free Text) Assessment: Patient is a 65yo female with PMHx significant for HTN who presented to the ED with abdominal pain. For 11 days prior to admission she complained of cramping LLQ abdominal pain. -Acute diverticulitis with abscess formation -HTN Plan: -Patient will need continued course of antibiotics tailored to GNR which is growing in drained fluid culture -ID following -Surgery following -Will benefit from colonoscopy 6-8 weeks after resolution of acute medical issues; patient to follow up in office - Date & Time Date: 05/18/16 Time: 14:15 <Juan Francisco Mujica - Last Filed: 05/18/16 16:27> Meds - Medications Medications: Current Medications Acetaminophen (Tylenol 325mg Tab) 650 mg PO Q6H PRN PRN Reason: Fever >100.4 F Last Admin: 05/16/16 21:13 Dose: 650 mg Acetaminophen (Tylenol 325mg Tab) 650 mg PO Q4H PRN PRN Reason: Pain, Mild (1-3) Sodium Chloride (Sodium Chloride 0.9%) 1,000 mls @ 100 mls/hr IV .Q10H [facility] Last Admin: 05/17/16 12:30 Dose: 100 mls/hr Vancomycin HCl (Vancomycin 1gm) 250 mls @ 167 mls/hr IVPB Q12H [facility] PRN Reason: Protocol Last Admin: 05/18/16 05:10 Dose: 167 mls/hr Metronidazole (Flagyl) 100 mls @ 100 mls/hr IVPB Q8 [facility] PRN Reason: Protocol Last Admin: 05/18/16 14:24 Dose: 100 mls/hr Aztreonam (Azactam 1 Gm) 100 mls @ 100 mls/hr IVPB Q8 [facility] PRN Reason: Protocol Stop: 05/23/16 22:01 Last Admin: 05/18/16 13:19 Dose: 100 mls/hr Lactobacillus Acidophilus (Bacid Acidophilus) 1 cap PO BID [facility] Last Admin: 05/18/16 09:01 Dose: 1 cap Lisinopril (Zestril) 20 mg PO DAILY [facility] Last Admin: 05/18/16 13:21 Dose: 20 mg Metoprolol Succinate (Toprol Xl) 25 mg PO DAILY [facility] Last Admin: 05/18/16 09:00 Dose: 25 mg Ondansetron HCl (Zofran Inj) 4 mg IVP Q4H PRN PRN Reason: Nausea/Vomiting Oxycodone/Acetaminophen (Percocet 5/325 Mg Tab) 1 tab PO Q6H PRN PRN Reason: Pain, moderate (4-7) Stop: 05/19/16 19:42 Last Admin: 05/17/16 23:27 Dose: 1 tab Pantoprazole Sodium (Protonix Inj) 40 mg IVP DAILY [facility] Last Admin: 05/18/16 09:00 Dose: 40 mg Results - Vital Signs Recent Vital Signs: Last Vital Signs Temp 98.5 F 05/18/16 08:00 Pulse 80 05/18/16 13:21 Resp 20 05/18/16 08:00 BP 140/82 05/18/16 13:21 Pulse Ox 99 05/18/16 08:00 - Labs Result Diagrams: 05/18/16 06:45 05/18/16 06:45 Labs: Laboratory Results - last 24 hr 05/18/16 06:45 WBC 7.7 D RBC 3.79 Hgb 10.2 L Hct 31.7 L MCV 83.6 MCH 26.9 MCHC 32.2 RDW 13.1 Plt Count 297 MPV 10.0 Gran % 72.3 H Lymph % (Auto) 16.9 L [place] % (Auto) 8.0 H Eos % (Auto) 2.7 Baso % (Auto) 0.1 Gran # 5.57 Lymph # 1.3 [place] # 0.6 Eos # 0.2 Baso # 0.01 Sodium 135 Potassium 3.7 Chloride 105 Carbon Dioxide 18 L Anion Gap 16 BUN 7 Creatinine 0.6 Est GFR ( Amer) > 60 Est GFR (Non-Af Amer) > 60 Random Glucose 74 Calcium 8.1 L Phosphorus 2.7 Magnesium 1.9 Total Bilirubin 0.5 AST 23 ALT 13 Alkaline Phosphatase 94 Total Protein 7.2 Albumin 3.1 Globulin 4.1 Albumin/Globulin Ratio 0.8 L Attending/Attestation - Attestation I have personally seen and examined this patient.: Yes I have fully participated in the care of the patient.: Yes I have reviewed all pertinent clinical information: Yes Notes (Text): 05/18/16 16:25 65 year old female with HTN who presented with abdominal pain and fever, found to have acute complicated diverticulitis with abscess. 1. Acute diverticulitis Plan: -complicated by abscess formation -patient is s/p Ct guided drainage -continue IV antibiotics -appreciate surgical consultation -advance diet as tolerated -recommend colonoscopy when diverticulitis/abscess are resolved in 6-8 weeks depending on clinical course
--- NOTE | 2016-05-18 15:16 | CP.PCM.PN ---
Subjective - Date & Time of Evaluation Date of Evaluation: 05/18/16 Time of Evaluation: 11:10 - Subjective Subjective: Comfortable in bed, not in distress, no fevers. Objective - Vital Signs/Intake and Output Vital Signs (last 24 hours): Temp Pulse Resp BP Pulse Ox 98.5 F 77 20 152/60 H 99 05/18/16 08:00 05/18/16 09:00 05/18/16 08:00 05/18/16 09:00 05/18/16 08:00 Intake and Output: 05/18/16 05/18/16 06:59 18:59 Intake Total 0 1300 Output Total 130 Balance 0 1170 - Medications Medications: Current Medications Acetaminophen (Tylenol 325mg Tab) 650 mg PO Q6H PRN PRN Reason: Fever >100.4 F Last Admin: 05/16/16 21:13 Dose: 650 mg Acetaminophen (Tylenol 325mg Tab) 650 mg PO Q4H PRN PRN Reason: Pain, Mild (1-3) Sodium Chloride (Sodium Chloride 0.9%) 1,000 mls @ 100 mls/hr IV .Q10H [facility] Last Admin: 05/17/16 12:30 Dose: 100 mls/hr Vancomycin HCl (Vancomycin 1gm) 250 mls @ 167 mls/hr IVPB Q12H [facility] PRN Reason: Protocol Last Admin: 05/18/16 05:10 Dose: 167 mls/hr Metronidazole (Flagyl) 100 mls @ 100 mls/hr IVPB Q8 [facility] PRN Reason: Protocol Last Admin: 05/18/16 08:02 Dose: 100 mls/hr Aztreonam (Azactam 1 Gm) 100 mls @ 100 mls/hr IVPB Q8 [facility] PRN Reason: Protocol Stop: 05/23/16 22:01 Last Admin: 05/18/16 07:02 Dose: 100 mls/hr Lactobacillus Acidophilus (Bacid Acidophilus) 1 cap PO BID [facility] Last Admin: 05/18/16 09:01 Dose: 1 cap Metoprolol Succinate (Toprol Xl) 25 mg PO DAILY [facility] Last Admin: 05/18/16 09:00 Dose: 25 mg Ondansetron HCl (Zofran Inj) 4 mg IVP Q4H PRN PRN Reason: Nausea/Vomiting Oxycodone/Acetaminophen (Percocet 5/325 Mg Tab) 1 tab PO Q6H PRN PRN Reason: Pain, moderate (4-7) Stop: 05/19/16 19:42 Last Admin: 05/17/16 23:27 Dose: 1 tab Pantoprazole Sodium (Protonix Inj) 40 mg IVP DAILY [facility] Last Admin: 05/18/16 09:00 Dose: 40 mg - Labs Labs: 05/18/16 06:45 05/18/16 06:45 PT 12.0 Seconds (9.9-11.8) H 05/16/16 16:10 INR 1.11 (0.93-1.08) H 05/16/16 16:10 APTT 29.8 Seconds (23.7-30.8) 05/16/16 16:10 - Constitutional Appears: Non-toxic, No Acute Distress - Head Exam Head Exam: NORMAL INSPECTION - Neck Exam Neck Exam: absent: Lymphadenopathy, Meningismus - Respiratory Exam Respiratory Exam: Decreased Breath Sounds - Cardiovascular Exam Cardiovascular Exam: +S1, +S2 - GI/Abdominal Exam GI & Abdominal Exam: Soft. absent: Tenderness Assessment and Plan - Assessment and Plan (Free Text) Plan: Assessment Sepsis secondary to sigmoid diverticulitis with diverticular abscess S/P CT- guided drainage POD #2; abscess is growing gram negative bacilli HTN Plan continue Vancomycin, Azactam and Flagyl day 2 pending final blood and abscess culture results Will continue monitor clinically
--- NOTE | 2016-05-18 18:12 | CP.PCM.PN ---
<Gregory Palomares - Last Filed: 05/18/16 18:05> Subjective - Date & Time of Evaluation Date of Evaluation: 05/18/16 Time of Evaluation: 09:35 - Subjective Subjective: Pt seen and examined. Pt complaining of moderate abdominal pain. Pt denies fever , chills, chest pain, shortness of breath, nausea, and vomiting. Objective - Vital Signs/Intake and Output Vital Signs (last 24 hours): Temp Pulse Resp BP Pulse Ox 98.5 F 80 20 140/82 99 05/18/16 08:00 05/18/16 13:21 05/18/16 08:00 05/18/16 13:21 05/18/16 08:00 Intake and Output: 05/18/16 05/18/16 06:59 18:59 Intake Total 0 1300 Output Total 130 Balance 0 1170 - Medications Medications: Current Medications Acetaminophen (Tylenol 325mg Tab) 650 mg PO Q6H PRN PRN Reason: Fever >100.4 F Last Admin: 05/16/16 21:13 Dose: 650 mg Acetaminophen (Tylenol 325mg Tab) 650 mg PO Q4H PRN PRN Reason: Pain, Mild (1-3) Sodium Chloride (Sodium Chloride 0.9%) 1,000 mls @ 100 mls/hr IV .Q10H [facility] Last Admin: 05/17/16 12:30 Dose: 100 mls/hr Vancomycin HCl (Vancomycin 1gm) 250 mls @ 167 mls/hr IVPB Q12H [facility] PRN Reason: Protocol Last Admin: 05/18/16 17:46 Dose: 167 mls/hr Metronidazole (Flagyl) 100 mls @ 100 mls/hr IVPB Q8 [facility] PRN Reason: Protocol Last Admin: 05/18/16 14:24 Dose: 100 mls/hr Aztreonam (Azactam 1 Gm) 100 mls @ 100 mls/hr IVPB Q8 [facility] PRN Reason: Protocol Stop: 05/23/16 22:01 Last Admin: 05/18/16 13:19 Dose: 100 mls/hr Lactobacillus Acidophilus (Bacid Acidophilus) 1 cap PO BID [facility] Last Admin: 05/18/16 17:47 Dose: 1 cap Lisinopril (Zestril) 20 mg PO DAILY [facility] Last Admin: 05/18/16 13:21 Dose: 20 mg Metoprolol Succinate (Toprol Xl) 25 mg PO DAILY [facility] Last Admin: 05/18/16 09:00 Dose: 25 mg Ondansetron HCl (Zofran Inj) 4 mg IVP Q4H PRN PRN Reason: Nausea/Vomiting Oxycodone/Acetaminophen (Percocet 5/325 Mg Tab) 1 tab PO Q6H PRN PRN Reason: Pain, moderate (4-7) Stop: 05/19/16 19:42 Last Admin: 05/17/16 23:27 Dose: 1 tab Pantoprazole Sodium (Protonix Inj) 40 mg IVP DAILY [facility] Last Admin: 05/18/16 09:00 Dose: 40 mg - Labs Labs: 05/18/16 06:45 05/18/16 06:45 PT 12.0 Seconds (9.9-11.8) H 05/16/16 16:10 INR 1.11 (0.93-1.08) H 05/16/16 16:10 APTT 29.8 Seconds (23.7-30.8) 05/16/16 16:10 - Constitutional Appears: No Acute Distress - Head Exam Head Exam: ATRAUMATIC, NORMOCEPHALIC - Eye Exam Eye Exam: EOMI, PERRL - ENT Exam ENT Exam: Mucous Membranes Moist. absent: Mucous Membranes Dry - Neck Exam Neck Exam: Full ROM. absent: Lymphadenopathy, Thyromegaly - Respiratory Exam Respiratory Exam: Clear to Ausculation Bilateral. absent: Rales, Rhonchi, Wheezes - Cardiovascular Exam Cardiovascular Exam: +S1, +S2. absent: Gallop, Rubs - GI/Abdominal Exam GI & Abdominal Exam: Soft, Tenderness, Normal Bowel Sounds. absent: Distended, Rigid - Extremities Exam Extremities Exam: Full ROM. absent: Pedal Edema - Neurological Exam Neurological Exam: Alert, Awake, Oriented x3 - Psychiatric Exam Psychiatric exam: Normal Affect, Normal Mood - Skin Skin Exam: Normal Color, Warm Assessment and Plan - Assessment and Plan (Free Text) Assessment: Sigmoid Diverticulitis: Pt day 1 s/p CT guided abscess drainage and drain placement as per IR; 45 cc of purulent fluid drained and lavaged; serosanguinous fluid in drain Fluid cultures positive for gram negative rods Abd/Pelvis CT - sigmoid diverticulitis and abscess formation at the sigmoid wall ; mild to moderate bladder wall thickening, clinically correlate for cystitis; mildly enlarged uterus (please see full report) EKG- NSR Tmax 100.4, nontachycardic; pt afebrile overnight No leukocytosis CXR - no active disease (please see full report) Blood, urine cultures pending Azactam 1 gm IV q8h Vancomycin 1 gm IV q12h Flagyl IV q8h Percocet 5/325 mg po q6h prn for moderate pain Tylenol prn for mild pain Tylenol prn for fever Zofran prn for nausea Diet advanced to clear liquids Ns 100 cc/hr GI, Dr. Barajas, consulted. Help appreciated. As per GI, pt will need colonoscopy in 6-8 weeks once abscess and diverticulitis are resolved. HTN: BP currently stable Metoprolol 25 mg po qd Lisinopril 20 mg po qd Prophylactic Measures: DVT: SCDs GI: Protonix 40 mg IV qd <Don Frederick - Last Filed: 05/19/16 16:42> Objective - Vital Signs/Intake and Output Vital Signs (last 24 hours): Temp Pulse Resp BP Pulse Ox 99.2 F 78 20 173/104 H 99 05/19/16 09:22 05/19/16 09:22 05/19/16 09:22 05/19/16 09:22 05/19/16 09:22 Intake and Output: 05/19/16 05/19/16 06:59 18:59 Intake Total 600 Output Total 2 Balance 598 - Medications Medications: Current Medications Acetaminophen (Tylenol 325mg Tab) 650 mg PO Q6H PRN PRN Reason: Fever >100.4 F Last Admin: 05/16/16 21:13 Dose: 650 mg Acetaminophen (Tylenol 325mg Tab) 650 mg PO Q4H PRN PRN Reason: Pain, Mild (1-3) Heparin Sodium (Porcine) (Heparin) 5,000 units SC Q12 [facility] PRN Reason: Protocol Metronidazole (Flagyl) 100 mls @ 100 mls/hr IVPB Q8 [facility] PRN Reason: Protocol Last Admin: 05/19/16 13:00 Dose: 100 mls/hr Aztreonam (Azactam 1 Gm) 100 mls @ 100 mls/hr IVPB Q8 [facility] PRN Reason: Protocol Stop: 05/23/16 22:01 Last Admin: 05/19/16 13:00 Dose: 100 mls/hr Lactobacillus Acidophilus (Bacid Acidophilus) 1 cap PO BID [facility] Last Admin: 05/19/16 09:14 Dose: 1 cap Lisinopril (Zestril) 20 mg PO DAILY [facility] Last Admin: 05/19/16 09:09 Dose: Not Given Metoprolol Succinate (Toprol Xl) 25 mg PO DAILY [facility] Last Admin: 05/19/16 09:14 Dose: 25 mg Ondansetron HCl (Zofran Inj) 4 mg IVP Q4H PRN PRN Reason: Nausea/Vomiting Oxycodone/Acetaminophen (Percocet 5/325 Mg Tab) 1 tab PO Q6H PRN PRN Reason: Pain, moderate (4-7) Stop: 05/19/16 19:42 Last Admin: 05/17/16 23:27 Dose: 1 tab Pantoprazole Sodium (Protonix Inj) 40 mg IVP DAILY [facility] Last Admin: 05/19/16 09:14 Dose: 40 mg - Labs Labs: 05/19/16 07:30 05/19/16 07:30 PT 12.0 Seconds (9.9-11.8) H 05/16/16 16:10 INR 1.11 (0.93-1.08) H 05/16/16 16:10 APTT 29.8 Seconds (23.7-30.8) 05/16/16 16:10 Assessment and Plan - Assessment and Plan (Free Text) Assessment: attending note; Patient seen and examined with resident. Patient is a 65 year old female with a PMHx of HTN who presents to the ED with an 11 day history of lower abdominal pain. Pt also reports that she experienced a fever today. CT consistent with diverticulitis and abscess. surgery evaluation appreciated. Status post pigtail catheter placement by IR Dr. Yaya Oreilly. serosanguineous discharge in dr link. abdominal pain is improving. ID evaluation appreciated. continue IV vancomycin, azactam and Flagyl. follow-up culture results. started on clear liquid diet. Hypertension; currently controlled. Continue home meds. Upon discharge patient will follow-up with PMD Dr. Yarbrough. Attending/Attestation - Attestation I have personally seen and examined this patient.: Yes I have fully participated in the care of the patient.: Yes I have reviewed all pertinent clinical information, including history, physical exam and plan: Yes
[2016-05-19] MEDS: Vancomycin 1gm in NS 250ml 250 ML IVPB SCH (04:18)
[2016-05-19] MEDS: Sodium Chloride 0.9% 1,000 ML IV SCH ×2 (04:18→12:55)
[2016-05-19] MEDS: Aztreonam 1 Gm in NS 100mL 100 ML IVPB SCH ×3 (05:50→22:11)
[2016-05-19] MEDS: metroNIDAZOLE IV 500 mg/100 ml 100 ML IVPB SCH ×3 (06:37→22:12)
--- NOTE | 2016-05-19 07:18 | CP.PCM.PN ---
<TavoAntonia - Last Filed: 05/19/16 16:41> Subjective - Date & Time of Evaluation Date of Evaluation: 05/19/16 Time of Evaluation: 06:30 - Subjective Subjective: Pt seen and evaluated at the bedside. Pt denies F/N/V/abdominal pain. Is passing gas. Objective - Vital Signs/Intake and Output Vital Signs (last 24 hours): Temp Pulse Resp BP Pulse Ox 99.3 F 85 20 170/104 H 100 05/18/16 16:00 05/18/16 16:00 05/18/16 16:00 05/19/16 05:50 05/18/16 16:00 Intake and Output: 05/19/16 05/19/16 06:59 18:59 Intake Total 600 Output Total 2 Balance 598 - Medications Medications: Current Medications Acetaminophen (Tylenol 325mg Tab) 650 mg PO Q6H PRN PRN Reason: Fever >100.4 F Last Admin: 05/16/16 21:13 Dose: 650 mg Acetaminophen (Tylenol 325mg Tab) 650 mg PO Q4H PRN PRN Reason: Pain, Mild (1-3) Sodium Chloride (Sodium Chloride 0.9%) 1,000 mls @ 100 mls/hr IV .Q10H [facility] Last Admin: 05/19/16 04:18 Dose: 100 mls/hr Vancomycin HCl (Vancomycin 1gm) 250 mls @ 167 mls/hr IVPB Q12H [facility] PRN Reason: Protocol Last Admin: 05/19/16 04:18 Dose: 167 mls/hr Metronidazole (Flagyl) 100 mls @ 100 mls/hr IVPB Q8 [facility] PRN Reason: Protocol Last Admin: 05/19/16 06:37 Dose: 100 mls/hr Aztreonam (Azactam 1 Gm) 100 mls @ 100 mls/hr IVPB Q8 [facility] PRN Reason: Protocol Stop: 05/23/16 22:01 Last Admin: 05/19/16 05:50 Dose: 100 mls/hr Lactobacillus Acidophilus (Bacid Acidophilus) 1 cap PO BID [facility] Last Admin: 05/18/16 17:47 Dose: 1 cap Lisinopril (Zestril) 20 mg PO DAILY [facility] Last Admin: 05/19/16 05:50 Dose: 20 mg Metoprolol Succinate (Toprol Xl) 25 mg PO DAILY [facility] Last Admin: 05/18/16 09:00 Dose: 25 mg Ondansetron HCl (Zofran Inj) 4 mg IVP Q4H PRN PRN Reason: Nausea/Vomiting Oxycodone/Acetaminophen (Percocet 5/325 Mg Tab) 1 tab PO Q6H PRN PRN Reason: Pain, moderate (4-7) Stop: 05/19/16 19:42 Last Admin: 05/17/16 23:27 Dose: 1 tab Pantoprazole Sodium (Protonix Inj) 40 mg IVP DAILY [facility] Last Admin: 05/18/16 09:00 Dose: 40 mg - Labs Labs: 05/18/16 06:45 05/18/16 06:45 PT 12.0 Seconds (9.9-11.8) H 05/16/16 16:10 INR 1.11 (0.93-1.08) H 05/16/16 16:10 APTT 29.8 Seconds (23.7-30.8) 05/16/16 16:10 - Additional Findings Additional findings: - Constitutional Appears: No Acute Distress - Eye Exam Eye Exam: EOMI - Respiratory Exam Respiratory Exam: NORMAL BREATHING PATTERN - Cardiovascular Exam Cardiovascular Exam: RRR - GI/Abdominal Exam GI & Abdominal Exam: Soft, tenderness Additional comments: APDL catheter to LLQ present, serosanguinous drainage - Extremities Exam Extremities Exam: absent: Pedal Edema - Neurological Exam Neurological Exam: Alert, Awake - Skin Skin Exam: Warm Assessment and Plan - Assessment and Plan (Free Text) Plan: Plan: 65 F presents with sigmoid diverticulitis with abscess, IR drainage POD #3. Repeat abd CT: 4 x 6 cm abscess, drained of 45cc purulent fluid and lavaged. - ADAT - Cont Antibiotics as per ID - Conservative medical management at this time - Serial abd exams Further recs as per Dr Madeleine Vo PGY-1 <Tra Salvador B - Last Filed: 05/22/16 11:02> Objective - Vital Signs/Intake and Output Vital Signs (last 24 hours): Temp Pulse Resp BP Pulse Ox 98.7 F 93 H 20 160/106 H 100 05/20/16 08:00 05/20/16 12:01 05/20/16 08:00 05/20/16 12:01 05/20/16 08:00 - Labs Labs: 05/20/16 08:50 05/19/16 07:30 PT 12.0 Seconds (9.9-11.8) H 05/16/16 16:10 INR 1.11 (0.93-1.08) H 05/16/16 16:10 APTT 29.8 Seconds (23.7-30.8) 05/16/16 16:10 Attending/Attestation - Attestation I have personally seen and examined this patient.: Yes I have fully participated in the care of the patient.: Yes I have reviewed all pertinent clinical information, including history, physical exam and plan: Yes Notes (Text): 05/22/16 11:01 Pt was seen and examined at bedside on 05/19/16 Agree with above note and assessment Pt is improving clinically Advance diet to soft diet Can be DC home with PO antibiotics F/U as out pt Plan d.w pt in detail.
[2016-05-19 08:11] LABS: ADD MANUAL DIFF? NO
[2016-05-19 08:12] LABS: BASO # 0.01 [, K/mm3] (0.0-2.0); BASO % 0.2 % (0.0-3.0); EOS # 0.2 (0.0-0.7); EOS % 3.2 % (1.5-5.0); GRAN # 3.09 (1.4-6.5); GRAN % 58.8 % (50.0-68.0); HEMATOCRIT 32.5 % (36.0-48.0); LYMPH # 1.5 (1.2-3.4); LYMPH % 28.9 % (22.0-35.0); MEAN CELL VOLUME 82.3 fL (80.0-105.0); MEAN CORPUSCULAR HEMOGLOBIN 27.6 pg (25.0-35.0); MEAN CORPUSCULAR HGB CONC 33.5 g/dl (31.0-37.0); MONO # 0.5 (0.1-0.6); MONO % 8.9 % (1.0-6.0); PLATELET COUNT 342 [, 10^3/uL] (120.0-450.0); RED CELL DISTRIBUTION WIDTH 12.8 % (11.5-14.5); WHITE BLOOD COUNT 5.3 [, 10^3/ul] (4.5-11.0)
[2016-05-19 08:47] LABS: ALB/GLOB RATIO 0.8 (1.1-1.8); ALKALINE PHOSPHATASE 100 U/L (38-133); ALT/SGPT 14 U/L (7-56); AST/SGOT 35 U/L (15-39); BILIRUBIN,TOTAL 0.5 mg/dL (0.2-1.3); BLOOD UREA NITROGEN 3 mg/dL (7-21); CALCIUM 8.2 mg/dL (8.4-10.5); CARBON DIOXIDE 23 mmol/L (21-33); CHLORIDE 103 mmol/L (98-107); GFR AFRICAN-AMERICAN > 60; GLUCOSE,RANDOM 115 mg/dL (70-110); POTASSIUM 3.4 mmol/L (3.6-5.0); SODIUM 136 mmol/L (132-148); TOTAL PROTEIN 7.5 g/dL (5.8-8.3)
[2016-05-19] MEDS: Lactobacillus Acidophilus 500 MU Cap PO SCH ×2 (09:14→17:01)
[2016-05-19] MEDS: Metoprolol Succinate 25 mg XL Tab PO SCH (09:14)
[2016-05-19 09:22] LABS: PHOSPHOROUS 2.5 mg/dL (2.5-4.5)
[2016-05-19] MEDS ORDERED: Potassium Chloride 20 mEq ER Tab PO ONE (12:09)
--- NOTE | 2016-05-19 13:00 | CP.PCM.PN ---
Subjective - Date & Time of Evaluation Date of Evaluation: 05/19/16 Time of Evaluation: 12:58 - Subjective Subjective: RFV: Diverticulitis S: Improving. Feels a bit better. C/o discomfort from drain. Has some mild diarrhea. Mild abdominal cramping with BM. No bleeding or fever. Objective - Vital Signs/Intake and Output Vital Signs (last 24 hours): Temp Pulse Resp BP Pulse Ox 99.2 F 78 20 173/104 H 99 05/19/16 09:22 05/19/16 09:22 05/19/16 09:22 05/19/16 09:22 05/19/16 09:22 Intake and Output: 05/19/16 05/19/16 06:59 18:59 Intake Total 600 Output Total 2 Balance 598 - Medications Medications: Current Medications Acetaminophen (Tylenol 325mg Tab) 650 mg PO Q6H PRN PRN Reason: Fever >100.4 F Last Admin: 05/16/16 21:13 Dose: 650 mg Acetaminophen (Tylenol 325mg Tab) 650 mg PO Q4H PRN PRN Reason: Pain, Mild (1-3) Heparin Sodium (Porcine) (Heparin) 5,000 units SC Q12 [facility] PRN Reason: Protocol Sodium Chloride (Sodium Chloride 0.9%) 1,000 mls @ 100 mls/hr IV .Q10H [facility] Last Admin: 05/19/16 04:18 Dose: 100 mls/hr Metronidazole (Flagyl) 100 mls @ 100 mls/hr IVPB Q8 [facility] PRN Reason: Protocol Last Admin: 05/19/16 06:37 Dose: 100 mls/hr Aztreonam (Azactam 1 Gm) 100 mls @ 100 mls/hr IVPB Q8 [facility] PRN Reason: Protocol Stop: 05/23/16 22:01 Last Admin: 05/19/16 05:50 Dose: 100 mls/hr Lactobacillus Acidophilus (Bacid Acidophilus) 1 cap PO BID [facility] Last Admin: 05/19/16 09:14 Dose: 1 cap Lisinopril (Zestril) 20 mg PO DAILY [facility] Last Admin: 05/19/16 09:09 Dose: Not Given Metoprolol Succinate (Toprol Xl) 25 mg PO DAILY [facility] Last Admin: 05/19/16 09:14 Dose: 25 mg Ondansetron HCl (Zofran Inj) 4 mg IVP Q4H PRN PRN Reason: Nausea/Vomiting Oxycodone/Acetaminophen (Percocet 5/325 Mg Tab) 1 tab PO Q6H PRN PRN Reason: Pain, moderate (4-7) Stop: 05/19/16 19:42 Last Admin: 05/17/16 23:27 Dose: 1 tab Pantoprazole Sodium (Protonix Inj) 40 mg IVP DAILY [facility] Last Admin: 05/19/16 09:14 Dose: 40 mg - Labs Labs: 05/19/16 07:30 05/19/16 07:30 PT 12.0 Seconds (9.9-11.8) H 05/16/16 16:10 INR 1.11 (0.93-1.08) H 05/16/16 16:10 APTT 29.8 Seconds (23.7-30.8) 05/16/16 16:10 - Constitutional Appears: Well, No Acute Distress - Head Exam Head Exam: ATRAUMATIC, NORMOCEPHALIC - Eye Exam Eye Exam: absent: Scleral icterus - Respiratory Exam Respiratory Exam: NORMAL BREATHING PATTERN. absent: Respiratory Distress - Cardiovascular Exam Cardiovascular Exam: +S1, +S2 - GI/Abdominal Exam GI & Abdominal Exam: Soft. absent: Tenderness - Neurological Exam Neurological Exam: Alert, Oriented x3 Assessment and Plan - Assessment and Plan (Free Text) Assessment: 65 year old female with HTN who presented with abdominal pain and fever, found to have acute complicated diverticulitis with abscess. 1. Acute diverticulitis Plan: -complicated by abscess formation -patient is s/p Ct guided drainage -Improving -continue IV antibiotics -appreciate surgical evaluation/follow up -advance diet as tolerated -recommend colonoscopy when diverticulitis/abscess are resolved in 6-8 weeks depending on clinical course -will sign off at this time -please contact with questions
--- NOTE | 2016-05-19 15:57 | CP.PCM.PN ---
<Gregory Palomares - Last Filed: 05/19/16 15:58> Subjective - Date & Time of Evaluation Date of Evaluation: 05/19/16 Time of Evaluation: 09:31 - Subjective Subjective: Pt seen and examined. Pt reports that she has some mild abdominal discomfort but overall feeling better. Pt tolerating diet, but reports she had some diarrhea today. Pt denies fever, chills, chest pain, shortness of breath, nausea , and vomiting. Objective - Vital Signs/Intake and Output Vital Signs (last 24 hours): Temp Pulse Resp BP Pulse Ox 99.2 F 78 20 173/104 H 99 05/19/16 09:22 05/19/16 09:22 05/19/16 09:22 05/19/16 09:22 05/19/16 09:22 Intake and Output: 05/19/16 05/19/16 06:59 18:59 Intake Total 600 Output Total 2 Balance 598 - Medications Medications: Current Medications Acetaminophen (Tylenol 325mg Tab) 650 mg PO Q6H PRN PRN Reason: Fever >100.4 F Last Admin: 05/16/16 21:13 Dose: 650 mg Acetaminophen (Tylenol 325mg Tab) 650 mg PO Q4H PRN PRN Reason: Pain, Mild (1-3) Heparin Sodium (Porcine) (Heparin) 5,000 units SC Q12 [facility] PRN Reason: Protocol Sodium Chloride (Sodium Chloride 0.9%) 1,000 mls @ 100 mls/hr IV .Q10H [facility] Last Admin: 05/19/16 12:55 Dose: 100 mls/hr Metronidazole (Flagyl) 100 mls @ 100 mls/hr IVPB Q8 [facility] PRN Reason: Protocol Last Admin: 05/19/16 13:00 Dose: 100 mls/hr Aztreonam (Azactam 1 Gm) 100 mls @ 100 mls/hr IVPB Q8 [facility] PRN Reason: Protocol Stop: 05/23/16 22:01 Last Admin: 05/19/16 13:00 Dose: 100 mls/hr Lactobacillus Acidophilus (Bacid Acidophilus) 1 cap PO BID [facility] Last Admin: 05/19/16 09:14 Dose: 1 cap Lisinopril (Zestril) 20 mg PO DAILY [facility] Last Admin: 05/19/16 09:09 Dose: Not Given Metoprolol Succinate (Toprol Xl) 25 mg PO DAILY [facility] Last Admin: 05/19/16 09:14 Dose: 25 mg Ondansetron HCl (Zofran Inj) 4 mg IVP Q4H PRN PRN Reason: Nausea/Vomiting Oxycodone/Acetaminophen (Percocet 5/325 Mg Tab) 1 tab PO Q6H PRN PRN Reason: Pain, moderate (4-7) Stop: 05/19/16 19:42 Last Admin: 05/17/16 23:27 Dose: 1 tab Pantoprazole Sodium (Protonix Inj) 40 mg IVP DAILY [facility] Last Admin: 05/19/16 09:14 Dose: 40 mg - Labs Labs: 05/19/16 07:30 05/19/16 07:30 PT 12.0 Seconds (9.9-11.8) H 05/16/16 16:10 INR 1.11 (0.93-1.08) H 05/16/16 16:10 APTT 29.8 Seconds (23.7-30.8) 05/16/16 16:10 - Constitutional Appears: No Acute Distress - Head Exam Head Exam: ATRAUMATIC, NORMOCEPHALIC - Eye Exam Eye Exam: EOMI, PERRL - ENT Exam ENT Exam: Mucous Membranes Moist. absent: Mucous Membranes Dry - Neck Exam Neck Exam: Full ROM. absent: Lymphadenopathy - Cardiovascular Exam Cardiovascular Exam: +S1, +S2. absent: Gallop, Rubs - GI/Abdominal Exam GI & Abdominal Exam: Soft, Tenderness, Normal Bowel Sounds. absent: Distended, Rigid - Extremities Exam Extremities Exam: Full ROM. absent: Pedal Edema - Neurological Exam Neurological Exam: Alert, Awake, Oriented x3 - Psychiatric Exam Psychiatric exam: Normal Affect, Normal Mood - Skin Skin Exam: Normal Color, Warm Assessment and Plan - Assessment and Plan (Free Text) Assessment: Sigmoid Diverticulitis: Pt day 2 s/p CT guided abscess drainage and drain placement as per IR; 45 cc of purulent fluid drained and lavaged; serosanguinous fluid in drain Fluid cultures positive for gram negative rods Abd/Pelvis CT - sigmoid diverticulitis and abscess formation at the sigmoid wall ; mild to moderate bladder wall thickening, clinically correlate for cystitis; mildly enlarged uterus (please see full report) EKG- NSR Pr afebrile, nontachycardic No leukocytosis CXR - no active disease (please see full report) Blood cutlrues no growth after 48 hrs Azactam 1 gm IV q8h Vancomycin discontinued Flagyl IV q8h Percocet 5/325 mg po q6h prn for moderate pain Tylenol prn for mild pain Tylenol prn for fever Zofran prn for nausea Clear liquid diet; advance diet as tolerated IV fluids discontinued As per GI, pt will need colonoscopy in 6-8 weeks once abscess and diverticulitis are resolved. Drain has minimal serosanguinous drainage HTN: Metoprolol 25 mg po qd Lisinopril 20 mg po qd Continue to monitor Prophylactic Measures: DVT: SCDs GI: Protonix 40 mg IV qd <Don Frederick - Last Filed: 05/20/16 16:49> Objective - Vital Signs/Intake and Output Vital Signs (last 24 hours): Temp Pulse Resp BP Pulse Ox 98.7 F 93 H 20 160/106 H 100 05/20/16 08:00 05/20/16 12:01 05/20/16 08:00 05/20/16 12:01 05/20/16 08:00 Intake and Output: 05/20/16 05/20/16 06:59 18:59 Intake Total 780 Balance 780 - Labs Labs: 05/20/16 08:50 05/19/16 07:30 PT 12.0 Seconds (9.9-11.8) H 05/16/16 16:10 INR 1.11 (0.93-1.08) H 05/16/16 16:10 APTT 29.8 Seconds (23.7-30.8) 05/16/16 16:10 Assessment and Plan - Assessment and Plan (Free Text) Assessment: attending note; Patient seen and examined with resident. Patient is a 65 year old female with a PMHx of HTN who presents to the ED with an 11 day history of lower abdominal pain. CT consistent with diverticulitis and abscess. surgery evaluation appreciated. Status post pigtail catheter placement by IR Dr. Yaya Oreilly. serosanguineous discharge in drain. abdominal pain is improving. ID evaluation appreciated. continue IV , azactam and Flagyl. culture grew Escherichia coli. started on clear liquid diet.advance to soft diet as tolerated. Hypertension; currently controlled. Continue home meds. possible discharge home tomorrow with close follow-up with IR for repeat CAT scan and drain removal. Upon discharge patient will follow-up with PMD Dr. Yarbrough. Attending/Attestation - Attestation I have personally seen and examined this patient.: Yes I have fully participated in the care of the patient.: Yes I have reviewed all pertinent clinical information, including history, physical exam and plan: Yes
--- NOTE | 2016-05-19 16:23 | CP.PCM.PN ---
Subjective - Date & Time of Evaluation Date of Evaluation: 05/19/16 Time of Evaluation: 10:45 - Subjective Subjective: Patient is afebrile, eating better, much improved abdominal pain, no nausea. Still has the abdominal drain. Objective - Vital Signs/Intake and Output Vital Signs (last 24 hours): Temp Pulse Resp BP Pulse Ox 99.2 F 78 20 173/104 H 99 05/19/16 09:22 05/19/16 09:22 05/19/16 09:22 05/19/16 09:22 05/19/16 09:22 Intake and Output: 05/19/16 05/19/16 06:59 18:59 Intake Total 600 Output Total 2 Balance 598 - Medications Medications: Current Medications Acetaminophen (Tylenol 325mg Tab) 650 mg PO Q6H PRN PRN Reason: Fever >100.4 F Last Admin: 05/16/16 21:13 Dose: 650 mg Acetaminophen (Tylenol 325mg Tab) 650 mg PO Q4H PRN PRN Reason: Pain, Mild (1-3) Sodium Chloride (Sodium Chloride 0.9%) 1,000 mls @ 100 mls/hr IV .Q10H [facility] Last Admin: 05/19/16 04:18 Dose: 100 mls/hr Metronidazole (Flagyl) 100 mls @ 100 mls/hr IVPB Q8 [facility] PRN Reason: Protocol Last Admin: 05/19/16 06:37 Dose: 100 mls/hr Aztreonam (Azactam 1 Gm) 100 mls @ 100 mls/hr IVPB Q8 [facility] PRN Reason: Protocol Stop: 05/23/16 22:01 Last Admin: 05/19/16 05:50 Dose: 100 mls/hr Lactobacillus Acidophilus (Bacid Acidophilus) 1 cap PO BID [facility] Last Admin: 05/19/16 09:14 Dose: 1 cap Lisinopril (Zestril) 20 mg PO DAILY [facility] Last Admin: 05/19/16 09:09 Dose: Not Given Metoprolol Succinate (Toprol Xl) 25 mg PO DAILY [facility] Last Admin: 05/19/16 09:14 Dose: 25 mg Ondansetron HCl (Zofran Inj) 4 mg IVP Q4H PRN PRN Reason: Nausea/Vomiting Oxycodone/Acetaminophen (Percocet 5/325 Mg Tab) 1 tab PO Q6H PRN PRN Reason: Pain, moderate (4-7) Stop: 05/19/16 19:42 Last Admin: 05/17/16 23:27 Dose: 1 tab Pantoprazole Sodium (Protonix Inj) 40 mg IVP DAILY [facility] Last Admin: 05/19/16 09:14 Dose: 40 mg - Labs Labs: 05/19/16 07:30 05/19/16 07:30 PT 12.0 Seconds (9.9-11.8) H 05/16/16 16:10 INR 1.11 (0.93-1.08) H 05/16/16 16:10 APTT 29.8 Seconds (23.7-30.8) 05/16/16 16:10 - Constitutional Appears: Non-toxic, No Acute Distress - Head Exam Head Exam: NORMAL INSPECTION - Neck Exam Neck Exam: absent: Lymphadenopathy, Meningismus - Respiratory Exam Respiratory Exam: Decreased Breath Sounds - Cardiovascular Exam Cardiovascular Exam: +S1, +S2 - GI/Abdominal Exam GI & Abdominal Exam: Soft. absent: Tenderness Additional comments: abdominal drain in place with serosanguinous fluid Assessment and Plan - Assessment and Plan (Free Text) Plan: Assessment Sepsis secondary to sigmoid diverticulitis with diverticular abscess S/P CT- guided drainage POD #3; abscess is growing E. coli HTN Plan continue Azactam and Flagyl day 3 since the abdominal drain is still in place and draining significant amount of fluid - minimum duration of antibiotics should be 4 days Will continue to monitor clinically
[2016-05-20] MEDS: metroNIDAZOLE IV 500 mg/100 ml 100 ML IVPB SCH (05:30)
[2016-05-20] MEDS: Aztreonam 1 Gm in NS 100mL 100 ML IVPB SCH (05:31)
[2016-05-20 08:13] VITALS: TEMP 98.7; O2SAT 100
[2016-05-20 08:55] LABS: MEAN CELL VOLUME 81.6 fL (80.0-105.0); MEAN CORPUSCULAR HEMOGLOBIN 27.7 pg (25.0-35.0); MEAN PLATELET VOLUME 10.1 fl (7.0-11.0); WHITE BLOOD COUNT 3.4 [, 10^3/ul] (4.5-11.0)
--- NOTE | 2016-05-20 11:42 | CP.PCM.PN ---
Subjective - Date & Time of Evaluation Date of Evaluation: 05/20/16 Time of Evaluation: 11:39 - Subjective Subjective: SURGERY NOTE FOR DR. DAWKINS 65F seen and examined at bedside. Patient denies Pain, nausea, vomiting, diarrhea. She is tolerating diet. Objective - Vital Signs/Intake and Output Vital Signs (last 24 hours): Temp Pulse Resp BP Pulse Ox 98.7 F 84 20 163/102 H 100 05/20/16 08:00 05/20/16 08:00 05/20/16 08:00 05/20/16 08:00 05/20/16 08:00 Intake and Output: 05/20/16 05/20/16 06:59 18:59 Intake Total 780 Balance 780 - Medications Medications: Current Medications Acetaminophen (Tylenol 325mg Tab) 650 mg PO Q6H PRN PRN Reason: Fever >100.4 F Last Admin: 05/16/16 21:13 Dose: 650 mg Acetaminophen (Tylenol 325mg Tab) 650 mg PO Q4H PRN PRN Reason: Pain, Mild (1-3) Heparin Sodium (Porcine) (Heparin) 5,000 units SC Q12 KRISTOFER PRN Reason: Protocol Last Admin: 05/19/16 22:12 Dose: 5,000 units Metronidazole (Flagyl) 100 mls @ 100 mls/hr IVPB Q8 KRISTOFER PRN Reason: Protocol Last Admin: 05/20/16 05:30 Dose: 100 mls/hr Aztreonam (Azactam 1 Gm) 100 mls @ 100 mls/hr IVPB Q8 KRISTOFER PRN Reason: Protocol Stop: 05/23/16 22:01 Last Admin: 05/20/16 05:31 Dose: 100 mls/hr Lactobacillus Acidophilus (Bacid Acidophilus) 1 cap PO BID [facility] Last Admin: 05/19/16 17:01 Dose: 1 cap Lisinopril (Zestril) 20 mg PO DAILY [facility] Last Admin: 05/19/16 09:09 Dose: Not Given Metoprolol Succinate (Toprol Xl) 25 mg PO DAILY [facility] Last Admin: 05/19/16 09:14 Dose: 25 mg Ondansetron HCl (Zofran Inj) 4 mg IVP Q4H PRN PRN Reason: Nausea/Vomiting Pantoprazole Sodium (Protonix Inj) 40 mg IVP DAILY [facility] Last Admin: 05/19/16 09:14 Dose: 40 mg - Labs Labs: 05/20/16 08:50 05/19/16 07:30 PT 12.0 Seconds (9.9-11.8) H 05/16/16 16:10 INR 1.11 (0.93-1.08) H 05/16/16 16:10 APTT 29.8 Seconds (23.7-30.8) 05/16/16 16:10 - Constitutional Appears: Non-toxic, No Acute Distress - Head Exam Head Exam: ATRAUMATIC - Respiratory Exam Respiratory Exam: Clear to Ausculation Bilateral, NORMAL BREATHING PATTERN - Cardiovascular Exam Cardiovascular Exam: REGULAR RHYTHM, +S1, +S2 - GI/Abdominal Exam GI & Abdominal Exam: Soft, Tenderness (mild tenderness in LLQ at site of IR drain). absent: Distended, Firm, Guarding, Rigid, Rebound - Neurological Exam Neurological Exam: Alert, Awake - Skin Skin Exam: Dry, Intact, Normal Color, Warm Assessment and Plan - Assessment and Plan (Free Text) Assessment: 65 F presents with sigmoid diverticulitis with abscess, IR drainage POD #4 Plan: - monitor labs. - cleared once tolerating diet. Further recs discuss with Dr. Madeleine Pena, PGY1
[2016-05-20] MEDS: Metoprolol Succinate 25 mg XL Tab PO SCH (12:01)
[2016-05-20] MEDS: Lactobacillus Acidophilus 500 MU Cap PO SCH (12:02)
[2016-05-20 12:03] VITALS: BP 160/106; PULSE 93
--- NOTE | 2016-05-20 14:02 | CP.PCM.DIS ---
Provider - Provider Date of Admission: 05/16/16 15:07 Attending physician: Don Frederick MD Time Spent in preparation of Discharge (in minutes): 35 Hospital Course - Lab Results Lab Results: Micro Results 05/16/16 19:49 Abscess - Abscess Anaerobic Culture - Final NO ANAEROBES ISOLATED. 05/16/16 19:49 Abscess - Abscess Fungal Culture - Final 05/16/16 19:49 Other: Please Indicate Body Fluid Culture - Final Escherichia Coli Most Recent Lab Values WBC 3.4 10^3/ul (4.5-11.0) L D 05/20/16 08:50 RBC 4.29 10^6/uL (3.5-6.1) 05/20/16 08:50 Hgb 11.9 gm/dL (12.0-16.0) L 05/20/16 08:50 Hct 35.0 % (36.0-48.0) L 05/20/16 08:50 MCV 81.6 fL (80.0-105.0) 05/20/16 08:50 MCH 27.7 pg (25.0-35.0) 05/20/16 08:50 MCHC 34.0 g/dl (31.0-37.0) 05/20/16 08:50 RDW 13.0 % (11.5-14.5) 05/20/16 08:50 Plt Count 410 10^3/uL (120.0-450.0) 05/20/16 08:50 MPV 10.1 fl (7.0-11.0) 05/20/16 08:50 Gran % 58.8 % (50.0-68.0) 05/19/16 07:30 Lymph % (Auto) 28.9 % (22.0-35.0) 05/19/16 07:30 Frio % (Auto) 8.9 % (1.0-6.0) H 05/19/16 07:30 Eos % (Auto) 3.2 % (1.5-5.0) 05/19/16 07:30 Baso % (Auto) 0.2 % (0.0-3.0) 05/19/16 07:30 Gran # 3.09 (1.4-6.5) 05/19/16 07:30 Lymph # 1.5 (1.2-3.4) 05/19/16 07:30 Frio # 0.5 (0.1-0.6) 05/19/16 07:30 Eos # 0.2 (0.0-0.7) 05/19/16 07:30 Baso # 0.01 K/mm3 (0.0-2.0) 05/19/16 07:30 PT 12.0 Seconds (9.9-11.8) H 05/16/16 16:10 INR 1.11 (0.93-1.08) H 05/16/16 16:10 APTT 29.8 Seconds (23.7-30.8) 05/16/16 16:10 Sodium 136 mmol/L (132-148) 05/19/16 07:30 Potassium 3.4 mmol/L (3.6-5.0) L 05/19/16 07:30 Chloride 103 mmol/L (98-107) 05/19/16 07:30 Carbon Dioxide 23 mmol/L (21-33) 05/19/16 07:30 Anion Gap 13 (10-20) 05/19/16 07:30 BUN 3 mg/dL (7-21) L 05/19/16 07:30 Creatinine 0.6 mg/dL (0.5-1.4) 05/19/16 07:30 Est GFR ( Amer) > 60 05/19/16 07:30 Est GFR (Non-Af Amer) > 60 05/19/16 07:30 Random Glucose 115 mg/dL (70-110) H 05/19/16 07:30 Calcium 8.2 mg/dL (8.4-10.5) L 05/19/16 07:30 Phosphorus 2.5 mg/dL (2.5-4.5) 05/19/16 07:30 Magnesium 2.0 mg/dL (1.7-2.2) 05/19/16 07:30 Total Bilirubin 0.5 mg/dL (0.2-1.3) 05/19/16 07:30 AST 35 U/L (15-39) 05/19/16 07:30 ALT 14 U/L (7-56) 05/19/16 07:30 Alkaline Phosphatase 100 U/L (38-133) 05/19/16 07:30 Total Protein 7.5 g/dL (5.8-8.3) 05/19/16 07:30 Albumin 3.3 g/dL (3.0-4.8) 05/19/16 07:30 Globulin 4.2 gm/dL 05/19/16 07:30 Albumin/Globulin Ratio 0.8 (1.1-1.8) L 05/19/16 07:30 Lipase 49 U/L (23-300) 05/16/16 12:00 Urine Color Yellow (YELLOW) 05/16/16 14:30 Urine Appearance Clear (CLEAR) 05/16/16 14:30 Urine pH 8.0 (4.7-8.0) 05/16/16 14:30 Ur Specific [place] 1.010 (1.005-1.035) 05/16/16 14:30 Urine Protein Negative mg/dL (<30 mg/dL) 05/16/16 14:30 Urine Glucose (UA) Negative mg/dL (NEGATIVE) 05/16/16 14:30 Urine Ketones Negative mg/dL (NEGATIVE) 05/16/16 14:30 Urine Blood Large (NEGATIVE) H 05/16/16 14:30 Urine Nitrate Negative (NEGATIVE) 05/16/16 14:30 Urine Bilirubin Negative (NEGATIVE) 05/16/16 14:30 Urine Urobilinogen 0.2 E.U./dL (<1 E.U./dL) 05/16/16 14:30 Ur Leukocyte Esterase Negative [place]/uL (NEGATIVE) 05/16/16 14:30 Urine RBC 10 - 15 /hpf (0-2) 05/16/16 14:30 Urine WBC Negative /hpf (0-6) 05/16/16 14:30 - Hospital Course Hospital Course: 1.Patient is a 65-year-old female admitted with diverticular abscess on 05/16/16. incision and drainage was done by IR Dr. Yaya Lane. Currently has pigtail catheter drainage. Continue catheter care. Patient will follow-up with Dr. Yaya Lane next week for repeat CAT scan and catheter removal. 2. Escherichia coli infection; treated with IV Azactam , Flagyl. We will be discharged home with po cipro and flagyl. 3. ID evaluation with Dr. Shearer appreciated. 4. GI evaluation appreciated. Needs outpatient colonoscopy after 8 weeks. 5.pain management with Percocet. 6. Hypertension; continue home medication metoprolol and lisinopril. The diagnosis, follow-up plan discussed case with patient's daughter in detail by the bedside. Diagnosis; diverticular abscess Status post drainage and catheter placement Hypertension E coli infection Discharge Exam - Head Exam Head Exam: ATRAUMATIC - ENT Exam ENT Exam: Mucous Membranes Moist - Respiratory Exam Respiratory Exam: NORMAL BREATHING PATTERN - Cardiovascular Exam Cardiovascular Exam: REGULAR RHYTHM - GI/Abdominal Exam GI & Abdominal Exam: Normal Bowel Sounds Additional comments: drain in LLQ, minimal Serosanguineous discharge present. - Back Exam Back exam: absent: CVA tenderness (L), CVA tenderness (R) - Neurological Exam Neurological exam: Alert - Psychiatric Exam Psychiatric exam: Normal Affect - Skin Skin Exam: Normal Color Discharge Plan - Discharge Medications Prescriptions: Ciprofloxacin HCl [Cipro] 500 mg PO BID #14 tablet Metronidazole [Flagyl] 500 mg PO TID #21 tablet oxyCODONE/Acetaminophen [Percocet 5/325 mg Tab] 1 ea PO BID #8 tab - Follow Up Plan Condition: FAIR Disposition: HOME/ ROUTINE Instructions: Colonoscopy (DC), Diverticulitis (DC), Heart Healthy Diet (DC), Chronic Hypertension (DC), Abscess (GEN), Hyperlipidemia (DC) Additional Instructions: 1. Follow up with Dr. Yaya lane on Sunday for Repeat CT and catheter removal. call on Sunday to confirm appointment. [phone]. 2. Finish antibiotics. 3. Follow up with GI Dr. Zee for colonoscopy after 8 weeks. 4. Avoid constipaion.
--- NOTE | 2016-05-20 14:11 | PN ---
DATE: 05/20/2016 The patient is in bed in no acute distress. On exam, temperature is 98, blood pressure is 163/100, respiratory rate of 20, heart rate of 93. EXAMINATION OF HENT: Unremarkable. NECK: Supple. LUNGS: Have decreased breath sounds. HEART EXAMINATION: Normal S1, S2. ABDOMINAL EXAMINATION: Soft. LABORATORY EXAMINATION: Reveals the patient's white count of 3.4, and the chemistries are noted. BU N of 3, creatinine of 0.6. Microbiology reveals E. coli, and culture results pansensitive, sensitive to Cipro. 's note is reviewed. ASSESSMENT AND PLAN: A 65-year-old female with sepsis secondary to sigmoid diverticulitis, with dive rticular abscess status post CAT scan-guided drainage, with sensitive E. coli, on IV Azactam and Flag yl day #4. Robinson Shearer MD cc: 350 TT: 05/20/2016 14:11:06 Confirmation # [id number] Dictation # [id number]
== END 2016-05-20 13:33 | disposition home or self-care (01) | DRG 901 ==
LOC: ED 11:22 → EROBSV 11:51 → ERH 15:07 → OBSVTOIN 15:07 → 5RNO 20:50
PROVIDERS: ADMIT Internal Medicine; ATTEND Internal Medicine
PROC: 0W9G30Z Drainage of Peritoneal Cavity with Drainage Device, Percutaneous Approach (ICD-10-PCS; principal; 2016-05-16 17:00)
DX: A41.9 Sepsis, unspecified organism (principal); K57.20 Diverticulitis of large intestine with perforation and abscess without bleeding; B96.20 Unspecified Escherichia coli [E. coli] as the cause of diseases classified elsewhere; I10 Essential (primary) hypertension; Z82.49 Family history of ischemic heart disease and other diseases of the circulatory system; Z83.3 Family history of diabetes mellitus

== ENCOUNTER 2016-05-31 09:16 | Emergency (ER) | payer MEDICAID ==
--- NOTE | 2016-05-31 10:21 | ED PDOC ---
Arrival/HPI - General Chief Complaint: Lower Extremity Problem/Injury Time Seen by Provider: 05/31/16 09:49 Historian: Patient - History of Present Illness Narrative History of Present Illness (Text): 05/31/16 10:19 65-year-old female presents today with left sided calf pain that started on Sunday. Patient denies any recent trauma or injury. She describes a sharp pain to the posterior calf with increased swelling to the left leg. No medications have been taken for pain at home. Patient was sent in by her primary care physician for evaluation. Patient denies numbness weakness or tingling in the extremity. No other complaints Past Medical History - Provider Review Nursing Documentation Reviewed: Yes - Travel History Have you recently traveled outside [place] w/in the past 3 mons?: No - Infectious Disease Hx of Infectious Diseases: None - Tetanus Immunization Tetanus Immunization: Unknown - Cardiac Hx Hypertension: Yes - Psychiatric Hx Substance Use: No Family/Social History - Physician Review Nursing Documentation Reviewed: Yes Family/Social History: Unknown Family HX Smoking Status: Never Smoked Hx Alcohol Use: No Hx Substance Use: No Allergies/Home Meds Allergies/Adverse Reactions: Allergies aspirin Allergy (Verified 05/31/16 09:34) ANAPHYLAXIS Penicillins Allergy (Verified 05/31/16 09:34) ANAPHYLAXIS Review of Systems - Review of Systems Constitutional: absent: Fatigue, Fevers Respiratory: absent: SOB, Cough Cardiovascular: absent: Chest Pain, Palpitations Gastrointestinal: absent: Abdominal Pain, Nausea, Vomiting Genitourinary Female: absent: Dysuria Musculoskeletal: Arthralgias (left leg pain). absent: Back Pain, Neck Pain Skin: absent: Rash, Pruritis Neurological: absent: Headache Psychiatric: absent: Anxiety Physical Exam Vital Signs Reviewed: Yes Vital Signs Temp Pulse Resp BP Pulse Ox 05/31/16 11:18 67 18 127/71 98 05/31/16 10:53 97.9 F 69 18 129/73 98 05/31/16 09:28 99 F 71 16 127/79 100 Temperature: Afebrile Blood Pressure: Normal Pulse: Regular Respiratory Rate: Normal Appearance: Positive for: Well-Appearing, Non-Toxic, Comfortable Pain Distress: None Mental Status: Positive for: Alert and Oriented X 3 - Systems Exam Head: Present: Atraumatic Respiratory/Chest: Present: Clear to Auscultation Cardiovascular: Present: Regular Rate and Rhythm Abdomen: No: Tenderness Lower Extremity: Present: CALF TENDERNESS, Normal ROM, Tenderness (Left leg: There is minimal edema noted. There is calf tenderness noted. Sensation and distal pulses are intact. Cap refill is less than 2.), Swelling, Neurovascularly Intact, Capillary Refill < 2 s. No: Erythema, Deformity, Temperature Abnormalties Neurological: Present: GCS=15, Speech Normal Skin: Present: Warm, Dry, Normal Color. No: Rashes Psychiatric: Present: Alert, Oriented x 3 Medical Decision Making ED Course and Treatment: 05/31/16 10:21 Patient is nontoxic well-appearing in no distress with stable vital signs lungs are clear to auscultation bilaterally. pt with left leg pain and swelling; sent in by PMD for concerns for DVT: pt has surgery 2 weeks ago. Venous duplex of the left lower leg; verbal report by data technical lead tylenol PO for pain Patient reassessment; patient is nontoxic well-appearing in no distress with stable vital signs pt feeling better after medications; I discussed the results with patient about followup with a primary care physician within the next 2 days. I've advised return if symptoms worsen persist or if there's concerning symptoms develop. I advised the patient that if she has continued pain and swelling she should return for reevaluation and possible repeat ultrasound to rule out blood clot. Patient verbalizes understanding of discharge instructions and need for immediate followup. Impression: Leg pain Tylenol every 4 hours as needed for pain Follow up with the primary care physician within the next 2 days Return if symptoms worsen persist or if new symptoms develop - RAD Interpretation Radiology Orders: 05/31/16 09:50 DUPLEX LOWER EXTRM VEIN LEFT [US] Stat - Medication Orders Current Medication Orders: Discontinued Medications Acetaminophen (Tylenol 325mg Tab) 975 mg PO STAT STA Stop: 05/31/16 09:51 Last Admin: 05/31/16 10:07 Dose: 975 MG [facility] Pain/Vitals Document 05/31/16 10:07 [facility] (Rec: 05/31/16 10:07 [facility] [id number]) Pain Reassessment Is This A Pain ReAssessment? No Disposition/Present on Arrival - Present on Arrival Any Indicators Present on Arrival: No History of DVT/PE: No History of Uncontrolled Diabetes: No Urinary Catheter: No History of Decub. Ulcer: No History Surgical Site Infection Following: None - Disposition Have Diagnosis and Disposition been Completed?: Yes Diagnosis: Leg pain Disposition: HOME/ ROUTINE Disposition Time: 11:30 Patient Plan: Discharge Condition: GOOD Discharge Instructions (ExitCare): Leg Pain (ED) Print Language: NIGERIAN Additional Instructions: Tylenol every 4 hours as needed for pain Follow up with the primary care physician within the next 2 days Return if symptoms worsen persist or if new symptoms develop Referrals: Lyn Yarbrough DO [Primary Care Provider] - Follow up with primary Obed Regan III, MD [Medical Doctor] - Follow up with primary
[2016-05-31 10:55] VITALS: RESP 18; TEMP 97.9; O2SAT 98
[2016-05-31 11:18] VITALS: BP 127/71; PULSE 67
--- NOTE | 2016-05-31 18:25 | US ---
PROCEDURE: Left lower extremity venous US HISTORY: Leg pain and swelling. Evaluate for DVT. PHYSICIAN(S): Yaya Oreilly MD. TECHNIQUE: Duplex sonography and color-flow Doppler with graded compression were used to evaluate the deep venous system of the left lower extremity. FINDINGS: The visualized deep venous system of the left lower extremity is sonographically normal and compressible. Normal wave forms and augmentation are seen. There is no sonographic evidence for deep venous thrombosis in the visualized segments of the left lower extremity. IMPRESSION: 1. No sonographic evidence for deep venous thrombosis in the visualized segments of the left lower extremity.
== END 2016-05-31 11:41 | disposition home or self-care (01) ==
LOC: MERGE 09:16 → ED 09:16
DX: M79.605 Pain in left leg (principal); Z88.0 Allergy status to penicillin; I10 Essential (primary) hypertension

== ENCOUNTER 2016-07-24 21:40 | Emergency (ER) | payer MEDICAID ==
[2016-07-24 21:41] VITALS: BMI 24.5
[2016-07-24 22:25] VITALS: TEMP 97.8; O2SAT 100
--- NOTE | 2016-07-24 22:55 | ED PDOC ---
Arrival/HPI - General Chief Complaint: High Blood Pressure Time Seen by Provider: 07/24/16 22:30 Historian: Patient - History of Present Illness Narrative History of Present Illness (Text): 07/24/16 22:52 Mary Santos is a 66 year old female, with a history of hypertension , presents to the emergency department complaining of elevated blood pressure. Patient is compliant with her hypertension medication. Complains of dizziness and hot flashes. Denies any fever, chest pain, difficulty breathing, abdominal pain, nausea, vomiting, diarrhea, urinary symptoms, or any other complaints at this time. Time/Duration: 4-6 hours Symptom Onset: Gradual Severity Level: Mild Activities at Onset: Light Context: Home Past Medical History - Provider Review Nursing Documentation Reviewed: Yes - Infectious Disease Hx of Infectious Diseases: None - Tetanus Immunization Tetanus Immunization: Unknown - Cardiac Hx Hypertension: Yes - Musculoskeletal/Rheumatological Hx Falls: No - Psychiatric Hx Psychophysiologic Disorder: No Hx Anxiety: No Hx Bipolar Disorder: No Hx Depression: No Hx Emotional Abuse: No Hx Hallucinations: No Hx Panic Disorder: No Hx Post Traumatic Stress Disorder: No Hx Psychosis: No Hx Physical Abuse: No Hx Schizophrenia: No Hx Sexual Abuse: No Hx Substance Use: No - Past Surgical History Past Surgical History: No Previous - Surgical History Other/Comment: tubal ligation - Anesthesia Hx Anesthesia: No Hx Anesthesia Reactions: No Hx Malignant Hyperthermia: No - Suicidal Assessment Feels Threatened In Home Enviroment: No Family/Social History - Physician Review Nursing Documentation Reviewed: Yes Family/Social History: No Known Family HX Smoking Status: Never Smoked Hx Alcohol Use: No Hx Substance Use: No Hx Substance Use Treatment: No Allergies/Home Meds Allergies/Adverse Reactions: Allergies aspirin Allergy (Verified 05/16/16 11:40) ANAPHYLAXIS Penicillins Allergy (Verified 05/16/16 11:40) ANAPHYLAXIS Home Medications: Home Meds Medication Instructions Recorded Confirmed Lisinopril 20 mg PO DAILY 08/20/14 05/16/16 Metoprolol Succinate 25 mg PO DAILY 05/16/16 05/16/16 Review of Systems - Physician Review All systems were reviewed & negative as marked: Yes - Review of Systems Constitutional: Other (hot flashes ). absent: Fatigue, Fevers Respiratory: Normal. absent: SOB, Cough Cardiovascular: Normal. absent: Chest Pain, Palpitations Gastrointestinal: Normal. absent: Abdominal Pain, Diarrhea, Nausea, Vomiting Neurological: Normal. absent: Headache, Dizziness Psychiatric: Normal Physical Exam Vital Signs Reviewed: Yes Vital Signs Temp Pulse Resp BP Pulse Ox 07/25/16 00:59 64 16 162/93 H 100 07/24/16 23:36 79 16 145/91 H 100 07/24/16 23:13 54 L 190/101 H 07/24/16 22:46 54 L 20 191/114 H 100 07/24/16 21:41 97.8 F 59 L 18 227/104 H 100 Temperature: Afebrile Blood Pressure: Hypertensive Pulse: Regular Respiratory Rate: Normal Appearance: Positive for: Well-Appearing, Non-Toxic, Comfortable Pain Distress: None Mental Status: Positive for: Alert and Oriented X 3 - Systems Exam Head: Present: Atraumatic, Normocephalic Pupils: Present: PERRL Extroacular Muscles: Present: EOMI Conjunctiva: Present: Normal Neck: Present: Normal Range of Motion Respiratory/Chest: Present: Clear to Auscultation, Good Air Exchange. No: Respiratory Distress, Accessory Muscle Use Cardiovascular: Present: Regular Rate and Rhythm, Normal S1, S2. No: Murmurs Abdomen: Present: Normal Bowel Sounds. No: Tenderness, Distention, Peritoneal Signs Upper Extremity: Present: Normal Inspection. No: Cyanosis, Edema Lower Extremity: Present: Normal Inspection. No: Edema Neurological: Present: GCS=15, CN II-XII Intact, Speech Normal, Motor Func Grossly Intact, Normal Sensory Function Skin: Present: Warm, Dry, Normal Color. No: Rashes Psychiatric: Present: Alert, Oriented x 3, Normal Insight, Normal Concentration Medical Decision Making ED Course and Treatment: 07/24/16 22:56 Impression: A 66 year old female who presents to the emergency department complaining of elevated blood pressure. Plan: -- EKG -- Apresoline -- Reassess and disposition Progress Notes: EKG reviewed by me: Sinus Tachycardia @ 50 bpm. Septal infarct, age undetermined. 07/25/16 00:48 Patient's blood pressure is 162/93. Patient is stable for discharge. Advised to present to emergency department for new/worsening symptoms and follow up with PMD within few days. Re-evaluation Time: 00:48 Reassessment Condition: Re-examined, Improved - Medication Orders Current Medication Orders: Discontinued Medications Hydralazine HCl (Apresoline) 10 mg IVP ONCE ONE Stop: 07/24/16 22:51 Last Admin: 07/24/16 23:13 Dose: 10 mg - Scribe Statement The provider has reviewed the documentation as recorded by the Mita Thomsa Provider Attestation: Provider Scribe Attestation: All medical record entries made by the Sheilaibcampos were at my direction and personally dictated by me. I have reviewed the chart and agree that the record accurately reflects my personal performance of the history, physical exam, medical decision making, and the department course for this patient. I have also personally directed, reviewed, and agree with the discharge instructions and disposition. Disposition/Present on Arrival - Present on Arrival Any Indicators Present on Arrival: No History of DVT/PE: No History of Uncontrolled Diabetes: No Urinary Catheter: No History of Decub. Ulcer: No History Surgical Site Infection Following: None - Disposition Have Diagnosis and Disposition been Completed?: Yes Diagnosis: Hypertension Disposition: HOME/ ROUTINE Disposition Time: 00:48 Condition: GOOD Discharge Instructions (ExitCare): Hypertension (ED) Referrals: Lyn Yarbrough DO [Primary Care Provider] - Follow up with primary
[2016-07-24 23:37] VITALS: RESP 16
[2016-07-25 01:01] VITALS: BP 162/93; PULSE 64
--- NOTE | 2016-07-26 01:43 | CARD ---
APPROVED REPORT EKG Measurement Heart [id number] [id number] <Conclusion> Sinus bradycardia Septal infarct, age undetermined Abnormal ECG
== END 2016-07-25 01:01 | disposition home or self-care (01) ==
LOC: ED 21:40
DX: I10 Essential (primary) hypertension (principal)
CPT/HCPCS: 93005; 96374; 99283; J0360

== ENCOUNTER 2016-07-25 10:27 | Emergency (ER) | payer MEDICAID ==
[2016-07-25 10:42] VITALS: BMI 22.6
[2016-07-25 10:45] VITALS: TEMP 98.2
[2016-07-25 11:17] VITALS: O2SAT 100
--- NOTE | 2016-07-25 11:40 | ED PDOC ---
Arrival/HPI - General Historian: Patient <Christian Sandovalystal - Last Filed: 07/25/16 13:14> - History of Present Illness Time/Duration: 4-6 hours Symptom Onset: Gradual Symptom Course: Unchanged Activities at Onset: Rest Context: Home <Isaias Reddy - Last Filed: 07/25/16 13:26> - General Chief Complaint: High Blood Pressure Time Seen by Provider: 07/25/16 11:11 - History of Present Illness Narrative History of Present Illness (Text): 07/25/16 11:37 This is a 66YF with PMH of HTN and diverticular abscess s/p drainage here for high blood pressure. She came to the ED yesterday for high BP as well. She reports she is having headache that is located in the back of her neck and radiates to her forehead. She is having some hot flashes and vision changes. The pt states this AM she took her Metoprolol and Lisinopril. She then checked her BP right after taking the medication and noted her SBP to be 190s. When she came in today, her BP is noted to be in 150s/100s. She complained of those symptoms yesterday when she came in and was given hydralazine once. Her PMD is noted to be Dr. Yarbrough. (Gilma Sandoval) Past Medical History - Provider Review Nursing Documentation Reviewed: Yes - Infectious Disease Hx of Infectious Diseases: None - Tetanus Immunization Tetanus Immunization: Unknown - Cardiac Hx Cardiac Disorders: Yes Hx Hypertension: Yes - Pulmonary Hx Respiratory Disorders: No - Neurological Hx Neurological Disorder: No - HEENT Hx HEENT Disorder: No - Renal Hx Renal Disorder: No - Endocrine/Metabolic Hx Endocrine Disorders: No - Hematological/Oncological Hx Blood Disorders: No - Integumentary Hx Dermatological Disorder: No - Musculoskeletal/Rheumatological Hx Musculoskeletal Disorders: No Hx Falls: No - Gastrointestinal Hx Gastrointestinal Disorders: No - Genitourinary/Gynecological Hx Genitourinary Disorders: No - Psychiatric Hx Psychophysiologic Disorder: No Hx Anxiety: No Hx Bipolar Disorder: No Hx Depression: No Hx Emotional Abuse: No Hx Hallucinations: No Hx Panic Disorder: No Hx Post Traumatic Stress Disorder: No Hx Psychosis: No Hx Physical Abuse: No Hx Schizophrenia: No Hx Sexual Abuse: No Hx Substance Use: No - Past Surgical History Past Surgical History: No Previous - Surgical History Other/Comment: tubal ligation - Anesthesia Hx Anesthesia: No Hx Anesthesia Reactions: No Hx Malignant Hyperthermia: No - Suicidal Assessment Feels Threatened In Home Enviroment: No <Gilma Sandoval - Last Filed: 07/25/16 13:14> Family/Social History - Physician Review Nursing Documentation Reviewed: Yes Family/Social History: Hypertension Smoking Status: Never Smoked Hx Alcohol Use: No Hx Substance Use: No Hx Substance Use Treatment: No <Gilma Sandoval - Last Filed: 07/25/16 13:14> Allergies/Home Meds <Gilma Sandoval - Last Filed: 07/25/16 13:14> <Isaias Reddy - Last Filed: 07/25/16 13:26> Allergies/Adverse Reactions: Allergies aspirin Allergy (Verified 07/25/16 10:42) ANAPHYLAXIS Penicillins Allergy (Verified 07/25/16 10:42) ANAPHYLAXIS Home Medications: Home Meds Medication Instructions Recorded Confirmed Lisinopril 20 mg PO DAILY 08/20/14 07/25/16 Metoprolol Succinate 25 mg PO DAILY 05/16/16 07/25/16 Review of Systems - Physician Review All systems were reviewed & negative as marked: Yes - Review of Systems Constitutional: Normal. absent: Fevers, Night Sweats Eyes: Vision Changes. absent: Photophobia, Eye Pain ENT: Normal. absent: Hearing Changes, Tinnitus Respiratory: Normal. absent: SOB, Cough Cardiovascular: Normal. absent: Chest Pain, Palpitations Gastrointestinal: Normal. absent: Abdominal Pain, Constipation, Diarrhea, Nausea Genitourinary Female: Normal. absent: Dysuria, Frequency Musculoskeletal: Neck Pain. absent: Arthralgias, Back Pain Skin: Normal. absent: Rash, Pruritis, Skin Lesions Neurological: Headache, Dizziness. absent: Speech Changes, Facial Droop Endocrine: Diaphoresis Hemo/Lymphatic: Normal. absent: Adenopathy, Easy Bleeding Psychiatric: Normal. absent: Anxiety, Depression <Gilma Sandoval - Last Filed: 07/25/16 13:14> Physical Exam Vital Signs Reviewed: Yes Temperature: Afebrile Blood Pressure: Hypertensive Pulse: Regular Respiratory Rate: Normal Appearance: Positive for: Well-Appearing, Non-Toxic, Comfortable Pain Distress: None Mental Status: Positive for: Alert and Oriented X 3 - Systems Exam Head: Present: Atraumatic, Normocephalic Pupils: Present: PERRL Extroacular Muscles: Present: EOMI Conjunctiva: Present: Normal Mouth: Present: Moist Mucous Membranes Neck: Present: Normal Range of Motion. No: JVD, Bruit Respiratory/Chest: Present: Clear to Auscultation, Good Air Exchange. No: Respiratory Distress, Accessory Muscle Use Cardiovascular: Present: Regular Rate and Rhythm, Normal S1, S2. No: Murmurs Abdomen: Present: Normal Bowel Sounds. No: Tenderness, Distention, Peritoneal Signs Back: Present: Normal Inspection Upper Extremity: Present: Normal Inspection. No: Cyanosis, Edema Lower Extremity: Present: Normal Inspection. No: Edema Neurological: Present: GCS=15, CN II-XII Intact, Speech Normal Skin: Present: Warm, Dry, Normal Color. No: Rashes Psychiatric: Present: Alert, Oriented x 3, Normal Insight, Normal Concentration <Gilma Sandoval - Last Filed: 07/25/16 13:14> <Isaias Reddy - Last Filed: 07/25/16 13:26> Vital Signs Temp Pulse Resp BP Pulse Ox 07/25/16 13:22 64 16 163/91 H 100 07/25/16 10:45 66 17 154/86 H 100 07/25/16 10:43 98.2 F 69 16 173/99 H 99 Medical Decision Making Re-evaluation Time: 12:47 Reassessment Condition: Improved - Lab Interpretations I have reviewed the lab results: Yes Interpretation: No sign. chg./baseline - RAD Interpretation Golf Coach: Radiologist - EKG Interpretation Interpreted by ED Physician: Yes Type: 12 lead EKG Comparison: Similar to previous EKG <Gilma Sandoval - Last Filed: 07/25/16 13:14> <Isaias Reddy - Last Filed: 07/25/16 13:26> ED Course and Treatment: 07/25/16 11:42 Impression: This is a 66Y F with PMH diverticular abscess s/p drainage here for HTN. Pt was noted to be seen yesterday for HTN as well. DDX: uncontrolled HTN, r/o [place], r/o CVA, Tension headache. Plan: -- EKG -- CBC, CMP, TSH, Cardiac iso -- CT head -- Ibuprofen --Reassess Prior Visits: Notes and results from previous visits were reviewed. Discharge Instructions: Re-evaluation. Patient feels better. Discussed results and plan with patient who expresses understanding. All questions answered and there is agreement with the plan to discharge home with instructions. Patient stable for discharge. Return if symptoms persist or worsen. (Gilma Sandoval) In agreement with resident note, which includes further HPI details. Patient was seen and evaluated with resident, came up with plan and treatment together. Patient essentially had high BP reading at home with mild headache but no cp or sob or dizziness or focal weakness. BP reading here is much improved and now asymptomatic. Workup is negative, and patient says she will go to PMD today - will d/c. (Isaias Reddy) - Lab Interpretations Lab Results: 07/25/16 11:40 07/25/16 11:40 Lab Results 07/25/16 11:40: TSH 3rd Generation 5.02 H 07/25/16 11:40: Sodium 142, Potassium 4.3, Chloride 104, Carbon Dioxide 29, Anion Gap 13, BUN 9, Creatinine 0.7, Est GFR ( Amer) > 60, Est GFR (Non- Af Amer) > 60, Random Glucose 90, Calcium 10.1, Total Bilirubin 0.4, AST 26, ALT 29, Alkaline Phosphatase 104, Lactate Dehydrogenase 430, Total Creatine Kinase 53, Troponin I < 0.01, Total Protein 8.8 H, Albumin 4.3, Globulin 4.5, Albumin/Globulin Ratio 1.0 L 07/25/16 11:40: WBC 4.0 L, RBC 4.65, Hgb 13.1, Hct 39.7, MCV 85.4, MCH 28.2, MCHC 33.0, RDW 14.5, Plt Count 283, MPV 11.1 H - RAD Interpretation Narrative RAD Interpretations (Text): 07/25/16 12:30 CT Head showed no active disease. Please see full report for more detail. ( Gilma Sandoval) Radiology Orders: 07/25/16 11:32 HEAD W/O CONTRAST [CT] Stat - EKG Interpretation EKG Interpretation (Text): 07/25/16 11:46 HR@61. Intervals within normal limits. 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 / has examined the patient and agrees with the treatment plan. <Isaias Reddy - Last Filed: 07/25/16 13:26> Disposition/Present on Arrival - Present on Arrival Any Indicators Present on Arrival: No History of DVT/PE: No History of Uncontrolled Diabetes: No Urinary Catheter: No History of Decub. Ulcer: No History Surgical Site Infection Following: None - Disposition Have Diagnosis and Disposition been Completed?: Yes Disposition Time: 12:48 Patient Plan: Discharge <Gilma Sandoval - Last Filed: 07/25/16 13:14> <Isaias Reddy - Last Filed: 07/25/16 13:26> - Disposition Diagnosis: HTN (hypertension) Disposition: HOME/ ROUTINE Condition: FAIR Discharge Instructions (ExitCare): Hypertension (GEN) Print Language: IRAQI Additional Instructions: Ms. Kevin Santos, thank you for letting us take care of you today. Your provider was Dr. Sandoval. You were treated for High blood pressure. The emergency medical care you received today was directed at your acute symptoms. If you were prescribed any medication, please fill it and take as directed. It may take several days for your symptoms to resolve. Return to the Emergency Department if your symptoms worsen, do not improve, or if you have any other problems. Please contact your doctor or call one of the physicians/clinics you have been referred to that are listed on the Patient Visit Information form that is included in your discharge packet. Bring any paperwork you were given at discharge with you along with any medications you are taking to your follow up visit. Our treatment cannot replace ongoing medical care by a primary care provider (PCP) outside of the emergency department. Thank you for allowing the [facility] team to be part of your care today. If you had an X-Ray or CT scan: A Radiologist will review the ED reading if any change in treatment is needed we will contact you. Please make an appointment with Dr. Yarbrough this week for HTN check up and medication adjustment. TSH noted to be mildly elevated at 5.03 with Normal at 4.63. Please recheck at Dr. Yarbrough's office as outpatient. Referrals: Lyn Yarbrough V, [Primary Care Provider] - Follow up with primary [facility] [Outside] - Follow up with primary
[2016-07-25 12:23] LABS: HEMATOCRIT 39.7 % (36.0-48.0); MEAN CELL VOLUME 85.4 fL (80.0-105.0); MEAN CORPUSCULAR HEMOGLOBIN 28.2 pg (25.0-35.0); MEAN PLATELET VOLUME 11.1 fl (7.0-11.0); RED CELL DISTRIBUTION WIDTH 14.5 % (11.5-14.5)
--- NOTE | 2016-07-25 12:29 | CT ---
PROCEDURE: CT HEAD WITHOUT CONTRAST. HISTORY: HTN, change in vision, headache COMPARISON: None available. TECHNIQUE: Axial computed tomography images were obtained through the head/brain without intravenous contrast. Radiation dose: Total exam DLP = 677 mGy-cm. This CT exam was performed using one or more of the following dose reduction techniques: Automated exposure control, adjustment of the mA and/or kV according to patient size, and/or use of iterative reconstruction technique. FINDINGS: HEMORRHAGE: No intracranial hemorrhage. BRAIN: No mass effect or edema. No atrophy or chronic microvascular ischemic changes. VENTRICLES: Unremarkable. No hydrocephalus. CALVARIUM: Unremarkable. PARANASAL SINUSES: Unremarkable as visualized. No significant inflammatory changes. MASTOID AIR CELLS: Unremarkable as visualized. No inflammatory changes. OTHER FINDINGS: None. IMPRESSION: No acute findings
[2016-07-25 12:39] LABS: ALKALINE PHOSPHATASE 104 U/L (38-133); ALT/SGPT 29 U/L (7-56); AST/SGOT 26 U/L (15-39); BILIRUBIN,TOTAL 0.4 mg/dL (0.2-1.3); BLOOD UREA NITROGEN 9 mg/dL (7-21); CALCIUM 10.1 mg/dL (8.4-10.5); CARBON DIOXIDE 29 mmol/L (21-33); CHLORIDE 104 mmol/L (98-107); GFR AFRICAN-AMERICAN > 60; GLUCOSE,RANDOM 90 mg/dL (70-110); POTASSIUM 4.3 mmol/L (3.6-5.0); SODIUM 142 mmol/L (132-148); TOTAL PROTEIN 8.8 g/dL (5.8-8.3)
[2016-07-25 12:50] LABS: TROPONIN I < 0.01 ng/mL
[2016-07-25 13:22] VITALS: BP 163/91; PULSE 64; RESP 16
--- NOTE | 2016-07-26 01:34 | CARD ---
APPROVED REPORT EKG Measurement Heart [id number] <Conclusion> Normal sinus rhythm Cannot rule out Anterior infarct, age undetermined Abnormal ECG
== END 2016-07-25 13:22 | disposition home or self-care (01) ==
LOC: ED 10:27
DX: I10 Essential (primary) hypertension (principal)

== ENCOUNTER 2017-07-25 15:38 | Emergency (ER) | payer MEDICAID, MEDICARE ==
[2017-07-25 15:41] VITALS: BMI 22.6
[2017-07-25] MEDS ORDERED: Morphine 5 MG/ML SYRINGE IVP STA (16:29)
[2017-07-25] MEDS ORDERED: Morphine 2 mg/2 mL syringe IVP STA (16:32)
--- NOTE | 2017-07-25 16:32 | ED PDOC ---
Arrival/HPI - General Chief Complaint: Abdominal Pain Time Seen by Provider: 07/25/17 16:28 - History of Present Illness Narrative History of Present Illness (Text): 67 y/o F c PMHx diverticulosis p/w abdominal pain x 3 days. Pain is LLQ, nonradiating, sharp, constant. Patient feels feverish. Denies nausea, vomiting, diarrhea, dysuria, dyspnea. Past Medical History - Infectious Disease Hx of Infectious Diseases: None - Tetanus Immunization Tetanus Immunization: Unknown - Cardiac Hx Cardiac Disorders: Yes Hx Hypertension: Yes - Pulmonary Hx Respiratory Disorders: No - Neurological Hx Neurological Disorder: No - HEENT Hx HEENT Disorder: No - Renal Hx Renal Disorder: No - Endocrine/Metabolic Hx Endocrine Disorders: No - Hematological/Oncological Hx Blood Disorders: No - Integumentary Hx Dermatological Disorder: No - Musculoskeletal/Rheumatological Hx Musculoskeletal Disorders: No Hx Falls: No - Gastrointestinal Hx Gastrointestinal Disorders: Yes Hx Diarrhea: Yes - Genitourinary/Gynecological Hx Genitourinary Disorders: No - Psychiatric Hx Psychophysiologic Disorder: No Hx Substance Use: No - Past Surgical History Past Surgical History: No Previous - Surgical History Other/Comment: tubal ligation, COLONOSCOPY - Anesthesia Hx Anesthesia: Yes - Suicidal Assessment Feels Threatened In Home Enviroment: No Family/Social History Family/Social History: No Known Family HX Smoking Status: Never Smoked Hx Alcohol Use: No Hx Substance Use: No Hx Substance Use Treatment: No Allergies/Home Meds Allergies/Adverse Reactions: Allergies aspirin Allergy (Verified 07/25/17 15:45) ANAPHYLAXIS Penicillins Allergy (Verified 07/25/17 15:45) ANAPHYLAXIS Home Medications: Home Meds Medication Instructions Recorded Confirmed Lisinopril 20 mg PO DAILY 08/20/14 07/25/17 Metoprolol Succinate 25 mg PO DAILY 05/16/16 07/25/17 Review of Systems - Physician Review All systems were reviewed & negative as marked: Yes - Review of Systems Respiratory: absent: SOB Gastrointestinal: absent: Vomiting Physical Exam - Physical Exam Narrative Physical Exam (Text): Gen: NAD Head: NC/AT Eyes: No scleral icterus ENT: MMM Neck: Supple Chest: No tenderness CV: Regular rate Lungs: CTA b/l Abd: Soft, LLQ tenderness with guarding Back: No CVA tenderness Skin: No rash Extremities: No edema Neuro: Alert, no focal deficit Vital Signs Temp Pulse Resp BP Pulse Ox 05/30/18 15:46 99.6 F 82 16 126/81 98 Medical Decision Making ED Course and Treatment: Differential includes diverticulitis, UTI, abdominal wall pain, colitis. Will check labs, UA, and CT, give morphine for pain. 07/25/17 18:49 IMPRESSION: Severe segmental diverticulitis limited to the distal descending colon and adjacent sigmoid. No evidence of perforation, loculated air, free air or drainable collection. Additional benign and/or incidental findings described above. Passed PO challenge. Patient wishes to go home. Will give antibiotics IV first dose here, discharge on PO, follow up with PMD, and instructed to return to ED for worsening pain, fever, vomiting, or any other problem. - Lab Interpretations Lab Results: 07/25/17 17:20 07/25/17 17:20 Lab Results 07/25/17 17:20: Sodium 138, Potassium 3.7, Chloride 98, Carbon Dioxide 28, Anion Gap 17, BUN 13, Creatinine 0.8, Est GFR ( Amer) > 60, Est GFR (Non- Af Amer) > 60, Random Glucose 108, Calcium 8.3 L, Total Bilirubin 0.4, AST 30, ALT 23, Alkaline Phosphatase 79, Total Protein 8.5 H, Albumin 4.3, Globulin 4.2 , Albumin/Globulin Ratio 1.0 L, Lipase 74 07/25/17 17:20: Urine Color Yellow, Urine Appearance Sl cloudy, Urine pH 7.0, Ur Specific [place] 1.010, Urine Protein Negative, Urine Glucose (UA) Negative, Urine Ketones Negative, Urine Blood Moderate H, Urine Nitrate Negative, Urine Bilirubin Negative, Urine Urobilinogen 0.2, Ur Leukocyte Esterase Trace H, Urine RBC 5 - 10, Urine WBC 2 - 5, Ur Epithelial Cells 3 - 4, Urine Bacteria Few 07/25/17 17:20: WBC 7.4 D, RBC 4.10, Hgb 11.5 L, Hct 34.6 L, MCV 84.4, MCH 28.0 , MCHC 33.2, RDW 13.4, Plt Count 264, MPV 10.6, Gran % 52.1, Lymph % (Auto) 36.3 H, Sunflower % (Auto) 7.6 H, Eos % (Auto) 3.6, Baso % (Auto) 0.4, Gran # 3.86, Lymph # (Auto) 2.7, Sunflower # (Auto) 0.6, Eos # (Auto) 0.3, Baso # (Auto) 0.03 - RAD Interpretation Radiology Orders: 07/25/17 16:29 ABD & PELVIS IV CONTRAST ONLY [CT] Stat - Medication Orders Current Medication Orders: Levofloxacin/Dextrose (Levaquin 750mg) 750 mg in 150 mls @ 100 mls/hr IVPB STAT STA PRN Reason: Protocol Stop: 07/25/17 20:17 Discontinued Medications Morphine Sulfate (Morphine) 2 mg IVP STAT STA Stop: 07/25/17 16:33 Last Admin: 07/25/17 17:09 Dose: 2 mg IVP Administration Document 07/25/17 17:09 CAMILLE (Rec: 07/25/17 17:10 CAMILLE [id number]) Charges for Administration # of IVP Administrations 1 Disposition/Present on Arrival - Present on Arrival Any Indicators Present on Arrival: No History of DVT/PE: No History of Uncontrolled Diabetes: No Urinary Catheter: No History of Decub. Ulcer: No History Surgical Site Infection Following: None - Disposition Have Diagnosis and Disposition been Completed?: Yes Diagnosis: Diverticulitis large intestine w/o perforation or abscess w/o bleeding Disposition: HOME/ ROUTINE Disposition Time: 18:50 Patient Plan: Discharge Condition: STABLE Discharge Instructions (ExitCare): Diverticulitis Prescriptions: Acetaminophen [Tylenol 325mg tab] 2 tab PO Q4H #30 tab Docusate [Colace] 100 mg PO BID #30 cap levoFLOXacin [Levaquin] 1 tab PO DAILY #10 tab Metronidazole [Flagyl] 500 mg PO Q8 #30 tab Ondansetron ODT [Zofran ODT] 4 mg PO Q8 #12 odt Referrals: Lyn Yarbrough DO [Primary Care Provider] - Follow up with primary Forms: [employer] (Macedonian)
[2017-07-25 17:48] LABS: BASO # 0.03 K/mm3 (0.0-2.0); BASO % 0.4 % (0.0-3.0); EOS # 0.3 (0.0-0.7); EOS % 3.6 % (1.5-5.0); GRAN # 3.86 (1.4-6.5); GRAN % 52.1 % (50.0-68.0); HEMOGLOBIN 11.5 g/dL (12.0-16.0); LYMPH # 2.7 (1.2-3.4); LYMPH % 36.3 % (22.0-35.0); MEAN CELL VOLUME 84.4 fl (80.0-105.0); MEAN CORPUSCULAR HGB CONC 33.2 g/dl (31.0-37.0); MEAN PLATELET VOLUME 10.6 fl (7.0-11.0); MONO # 0.6 (0.1-0.6); MONO % 7.6 % (1.0-6.0); RBC 4.1 10^6/uL (3.5-6.1); RED CELL DISTRIBUTION WIDTH 13.4 % (11.5-14.5); URINE BILIRUBIN NEGATIVE (NEGATIVE); URINE BLOOD MODERATE (NEGATIVE); URINE GLUCOSE (UA) NEGATIVE (NEGATIVE); URINE LEUKOCYTE ESTERASE TRACE Leu/uL (NEGATIVE); URINE PROTEIN NEGATIVE mg/dL (<30 mg/dL); URINE UROBILINOGEN 0.2 E.U./dL (<1 E.U./dL); WHITE BLOOD COUNT 7.4 10^3/ul (4.5-11.0)
[2017-07-25 17:50] LABS: URINE APPEARANCE SL CLOUDY (CLEAR); URINE COLOR YELLOW (YELLOW)
[2017-07-25 17:52] LABS: ALBUMIN 4.3 g/dL (3.0-4.8); ALT/SGPT 23 U/L (7-56); AST/SGOT 30 U/L (14-36); BLOOD UREA NITROGEN 13 mg/dL (7-21); CALCIUM 8.3 mg/dL (8.4-10.5); GFR AFRICAN-AMERICAN > 60; GFR NON-AFRICAN AMERICAN > 60; LIPASE 74 U/L (23-300)
[2017-07-25 17:57] LABS: URINE BACTERIA FEW (NEG)
[2017-07-25] MEDS ORDERED: Iohexol 350 MG/100 ML VIAL ONE (17:58)
--- NOTE | 2017-07-25 18:36 | CT ---
PROCEDURE: CT Abdomen and Pelvis with contrast HISTORY: Left lower quadrant pain. Relevant interventional procedure(s): 05/16/2016 CT-guided sigmoid abscess drainage. COMPARISON: 05/24/2016 CT abdomen and pelvis. 05/16/2016 CT abdomen and pelvis. TECHNIQUE: Contrast dose: 94 cc Omnipaque 350 Radiation dose: Total exam DLP = 361.64 go mGy-cm. This CT exam was performed using one or more of the following dose reduction techniques: Automated exposure control, adjustment of the mA and/or kV according to patient size, and/or use of iterative reconstruction technique. FINDINGS: LOWER THORAX: Stable, small hiatal hernia. Otherwise unremarkable as visualized. LIVER: Unremarkable. No gross lesion or ductal dilatation. GALLBLADDER AND BILE DUCTS: Unremarkable. PANCREAS: Unremarkable. No gross lesion or ductal dilatation. SPLEEN: Unremarkable. ADRENALS: Unremarkable. No mass. KIDNEYS AND URETERS: Unremarkable. No hydronephrosis. No solid mass. VASCULATURE: Unremarkable. No aortic aneurysm. BOWEL: Severe sigmoid diverticulitis affecting an 11 cm segment of the distal descending colon and sigmoid with sparing of the rectum. No evidence of mechanical obstruction. No associated drainable collection. The affected area is at the site of the previously identified sigmoid abscess. There is a component of constipation. APPENDIX: Normal appendix. PERITONEUM: Unremarkable. No free fluid. No free air. LYMPH NODES: Unremarkable. No enlarged lymph nodes. BLADDER: Unremarkable. REPRODUCTIVE: Unremarkable. BONES: No acute fracture. OTHER FINDINGS: None. IMPRESSION: Severe segmental diverticulitis limited to the distal descending colon and adjacent sigmoid. No evidence of perforation, loculated air, free air or drainable collection. Additional benign and/or incidental findings described above.
[2017-07-25] MEDS ORDERED: metroNIDAZOLE IV 500 mg/100 ml 500 MG/100 ML BAG IVPB STA (18:48)
[2017-07-25] MEDS ORDERED: levoFLOXacin 750 mg in D5W 750 MG/150 ML BAG IVPB STA (18:48)
[2017-07-25 21:36] VITALS: RESP 18; O2SAT 99
[2017-07-25 21:37] VITALS: BP 125/83; PULSE 82; TEMP 98.9
== END 2017-07-25 21:25 | disposition home or self-care (01) ==
LOC: ED 15:38
DX: K57.32 Diverticulitis of large intestine without perforation or abscess without bleeding (principal); I10 Essential (primary) hypertension
CPT/HCPCS: 74177; 80053; 81001; 83690; 85025; 87086; 96365; 96366; 96367; 96375; 99283; J2270; Q9967

== ENCOUNTER 2018-03-08 11:44 | Outpatient (CLI) | payer MEDICARE, MEDICAID | END 2018-03-08 11:45 | disposition home or self-care (01) | LOC: RAD 11:44 ==